=== PATIENT | female | born 1950 | race Caucasian/White ===

== ENCOUNTER 2016-11-12 10:08 | Emergency (ER) | payer OTHER, MEDICARE ==
[~2016-11-12] VITALS: Ht 162.6 cm; Wt 61.2 kg
[~2016-11-12 10:08] MED LIST: AMANTADINE HCL100 M1 PO; ATORVASTATIN CA10 M1 PO; DIVALPROEX SOD250 M3 PO; FLUVOXAMINE MAL25 M1 PO; LITHIUM CARBON300 M4 PO; LITHIUM CARBON450 M1 PO; LITHIUM CARBON450 MG PO; OLANZAPINE15 M1 PO; OLANZAPINE5 MG PO; PROPRANOLOL HCL10 MG PO; TRAZODONE HCL50 M1 PO; TRIHEXYPHENIDYL2 MG PO
--- NOTE | 2016-11-12 11:11 | ED MVC/FALL/TRAUMA COMPLAINT ---
History of Present Illness General Chief Complaint: Fall Stated Complaint: BIBA FALL Source: patient Exam Limitations: no limitations Vital Signs & Intake/Output Vital Signs & Intake/Output Vital Signs Date Time Temp Pulse Resp B/P Pulse O2 O2 Flow FiO2 Ox Delivery Rate 11/12 1228 78 22 113/67 96 Room Air 11/12 1054 98 Room Air 11/12 1017 96.9 80 20 115/77 95 Room Air Allergies Coded Allergies: NO KNOWN ALLERGIES (06/20/16) Reconcile Medications Atorvastatin Calcium 10 MG TABLET 1 TAB PO DAILY CHOLESTEROL (Reported) Divalproex Sodium (Divalproex Sodium ER) 250 MG TAB.ER.24H 1 TAB PO DAILY BIPOLAR (Reported) Divalproex Sodium (Depakote) 500 MG TABLET.DR 1 TAB PO QPM BIPOLAR (Reported) Fluvoxamine Maleate 25 MG TABLET 1 TAB PO QHS MENTAL HEALTH (Reported) Pacifica Carbonate 300 MG CAPSULE 1 CAP PO BID UNKNOWN (Reported) Pacifica Carbonate (Pacifica Carbonate ER) 450 MG TABLET.ER 1 TAB PO Q12H MENTAL HEALTH (Reported) Olanzapine 15 MG TABLET 1 TAB PO QPM BIPOLAR (Reported) Trazodone HCl 50 MG TABLET 1 TAB PO QHS MENTAL HEALTH/SLEEP (Reported) Triage Note: PER EMS, PT WAS AT THE [facility], TRIPPED AND FELL. HIT LEFT SIDE OF HEAD, PT STATES SHE TRIPPED "OVER MY OWN 2 FEET", DENIES CHEST PAIN, DIZZINESS, WEAKNESS PRIOR TO FALL. ACCU CHECK 104. Triage Nurses Notes Reviewed? yes Onset: Gradual Duration: hour(s): (1) Timing: no prior history Severity: mild Severity Numbers: 4 Injuries/Fall Location: head, face Method of Injury: fall Loss of Consciousness: no loss of consciousness No Modifying Factors: none HPI: Patient is a 66-year-old female with history of schizoaffective disorder presenting to the emergency department with chief complaint of mechanical fall. Per patient she was walking, at baseline she has shuffled gait, reports that she tripped over her sneaker and fell and hit the left side of her head. Denies any loss of consciousness. No precipitating factors prior to the fall. No visual changes no lightheadedness or dizziness or chest pain palpitations. No nausea or vomiting. Does denies syncope. Denies any other injury besides hitting her head. She does not take blood thinners. She was able to get up with assistance after the fall. The people at the senior facility wanted her to come in by ambulance to be evaluated to make sure vomiting was okay. Patient reports no complaints at this time. No headaches. Denies taking anything prior to arrival for pain. No numbness or tingling. No confusion. (CIRO MUSE) Past History Travel History Traveled to [place] past 21 day No Medical History Any Pertinent Medical History? see below for history Neurological: NONE EENT: NONE Cardiovascular: NONE Respiratory: NONE Gastrointestinal: constipation Hepatic: NONE Renal: NONE Musculoskeletal: osteoarthritis Psychiatric: bipolar disease, PISA syndrome (oral tardive dyskinesia, torso dystonia). Endocrine: NONE Blood Disorders: NONE Cancer(s): NONE PARTS FINISHER/Reproductive: NONE History of MRSA: No History of VRE: No History of CDIFF: No Pneumonia Vaccine: 07/24/14 Surgical History Surgical History: non-contributory Psychosocial History Who do you live with Patient/Self Services at Home None What is your primary language Slovenian Tobacco Use: Never used ETOH Use: denies use Family History Family History, If Any: Relation not specified for: *No pertinent family history Hx Contributory? No (CIRO MUSE) Review of Systems Review of Systems Constitutional: Reports: no symptoms. Comments Review of systems: See HPI, All other systems negative. Constitutional, no chills fever or weight loss HEENT: No visual changes no sore throat no congestion Cardiovascular: No chest pain ,palpitation Skin, no jaundice no rashes Respiratory: No dyspnea cough sputum or hemoptysis GI: No nausea no vomiting : No dysuria No hematuria Muscle skeletal: no back pain, no neck pain, Neurologic: No numbness no confusion NO HEADACHES Psych: No stress anxiety or depression,. Heme/endocrine: No bruising no bleeding no polyuria or polydipsia Immunology: No splenectomy or history of AIDS (CIRO MUSE) Physical Exam Physical Exam General Appearance: well developed/nourished, no apparent distress, alert, awake , comfortable Comments: Well-developed well-nourished person in no acute distress HEENT: extraocular motion intact, no nystagmus. Pupils equally round and reactive to light and accommodation. Nose is atraumatic. External auditory canal and Tympanic membranes clear. Pharynx normal. No swelling or edema. Mild tenderness to palpation over the left parietal region/FRONTALREGION. no step-off or bogginess palpated.SMALL 3 CM HEMATOMA. Neck: Supple, no lymphadenopathy, normal range of motion without pain or tenderness, no C-spine tenderness. Back: Nontender, full range of motion. Negative straight leg raise bilaterally. Cardiovascular: Regular rate and rhythms no murmurs rubs or gallops, normal JVP Respiratory: Chest nontender. No respiratory distress.breath sounds clear to auscultation bilaterally Extremity: No edema, no calf tenderness to palpation, normal and equal pulses. Full range of motion of all extremities without [place] of ear pain. All Source Collection Manager strength is equal and symmetric bilaterally. Muscular strength is 5 out of 5 in all extremities. Neuro: Alert oriented x3, motor sensory normal, cranial nerves II through XII grossly intact. Cerebellar testing is unremarkable. Skin: No appreciable rash on exposed skin, skin is warm and dry. Psych: Mood and affect is normal, memory and judgment is normal. Core Measures ACS in differential dx? No Severe Sepsis Present: No Septic Shock Present: No (ANDREA VASQUEZ,CIRO) Progress Differential Diagnosis: C/T/L spine injury, ICH, SKULL FRACTURE Plan of Care: Orders Procedure Date/time Status Regular Diet 11/12 D Active Diagnostic Imaging: Viewed by Me: CT Scan. Discussed w/RAD: CT Scan. Radiology Impression: PATIENT: YRN CHINO PRESENT AGE: 66 PATIENT ACCOUNT NO: [id number] : 48 LOCATION: [facility] ORDERING PHYSICIAN: CIRO VASQUEZ SERVICE DATE: 11/12/16-1110 EXAM TYPE: CAT - CT HEAD WO IV CONTRAST EXAMINATION: CT HEAD WITHOUT CONTRAST CLINICAL INFORMATION: Fall. Head strike. Evaluate for fracture. COMPARISON: CT scan of the head 11/23/2013. TECHNIQUE: Contiguous axial imaging was performed from the skull base to vertex without intravenous administration of contrast. DLP: 886.28 mGy-cm. FINDINGS: Head: There is mild swelling of the left frontal scalp. There is no acute intracranial hemorrhage or abnormal extra-axial collection. No intracranial mass effect or midline shift. Lateral and third ventricles are slightly prominent and there is proportionate prominence of the subarachnoid spaces reflecting a mild degree of global parenchymal volume loss. Wright-white matter differentiation is grossly preserved and there is no evidence of acute territorial infarct. The calvarium and skull base are intact. Mastoid air cells and middle ear cavities are well aerated. Visualized paranasal sinuses are well aerated. There is degenerative arthrosis of both temporomandibular joints. Cervical spine: There is multilevel degenerative spondylosis with ankylosis fusing the vertebral segments from C3 to C6. There is junctional spondylosis at C6-C7 with loss of intervertebral disc height and sclerotic degenerative endplate changes. Alignment is preserved in the sagittal dimension. Vertebral body heights are maintained. There is no evidence of acute fracture or subluxation. Grossly there is no evidence of canal or neuroforaminal compromise. Soft tissues of the neck including the thyroid gland are unremarkable. Minimal pleural-parenchymal scarring visualized at the apices of both lungs. IMPRESSION: Mild swelling of the left frontal scalp. No acute intracranial hemorrhage. No acute cervical spine fracture. Comments: 11/12/2016 12:53:26 PM patient is neurologically intact in no acute distress. She does have pain to palpation over the left parietal region of the scalp. Although no step-off or bogginess palpated due to her age and medical history we 'll obtain CT scan of the head and neck for clearance. Fall was mechanical. 11/12/2016 1:20:14 PM patient informed of imaging results. Patient walking with a steady gait. Patient will follow up with primary care physician. Discussed with and he agrees with plan. (CIRO MUSE) Departure Departure Time of Disposition: 1322 Disposition: HOME OR SELF CARE Condition: Stable Clinical Impression Primary Impression: Minor head injury Qualifiers: Encounter type: initial encounter Qualified Code: S00.90XA - Unspecified superficial injury of unspecified part of head, initial encounter Referrals: NICK CANNON MD (PCP/Family) Additional Instructions: Follow-up with your primary care physician call to make an appointment. Apply ice to affected area. Take Tylenol for any pain. Return for worsening symptoms or concerns. Departure Forms: Customer Survey General Discharge Information (CIRO MUSE) PA/CAR RESTORER Co-Sign Statement Statement: ED Attending supervision documentation- x I saw and evaluated the patient. I have also reviewed all the pertinent lab results and diagnostic results. I agree with the findings and the plan of care as documented in the PA's/CAR RESTORER's documentation. [] I have reviewed the ED Record and agree with the PA's/CAR RESTORER's documentation. [] Additions or exceptions (if any) to the PAs/CAR RESTORER's note and plan are summarized below: [] (AG GARCIA,KUNAL)
[2016-11-12] MEDS ORDERED: DEPAKOTE500 M1 PO (11:16)
[2016-11-12 12:28] VITALS: BP 113/67
--- NOTE | 2016-11-12 13:04 | CT SCAN REPORT ---
EXAMINATION: CT HEAD WITHOUT CONTRAST CLINICAL INFORMATION: Fall. Head strike. Evaluate for fracture. COMPARISON: CT scan of the head 11/23/2013. TECHNIQUE: Contiguous axial imaging was performed from the skull base to vertex without intravenous administration of contrast. DLP: 886.28 mGy-cm. FINDINGS: Head: There is mild swelling of the left frontal scalp. There is no acute intracranial hemorrhage or abnormal extra-axial collection. No intracranial mass effect or midline shift. Lateral and third ventricles are slightly prominent and there is proportionate prominence of the subarachnoid spaces reflecting a mild degree of global parenchymal volume loss. Wright-white matter differentiation is grossly preserved and there is no evidence of acute territorial infarct. The calvarium and skull base are intact. Mastoid air cells and middle ear cavities are well aerated. Visualized paranasal sinuses are well aerated. There is degenerative arthrosis of both temporomandibular joints. Cervical spine: There is multilevel degenerative spondylosis with ankylosis fusing the vertebral segments from C3 to C6. There is junctional spondylosis at C6-C7 with loss of intervertebral disc height and sclerotic degenerative endplate changes. Alignment is preserved in the sagittal dimension. Vertebral body heights are maintained. There is no evidence of acute fracture or subluxation. Grossly there is no evidence of canal or neuroforaminal compromise. Soft tissues of the neck including the thyroid gland are unremarkable. Minimal pleural-parenchymal scarring visualized at the apices of both lungs. IMPRESSION: Mild swelling of the left frontal scalp. No acute intracranial hemorrhage. No acute cervical spine fracture.
--- NOTE | 2016-11-12 13:19 | CT SCAN REPORT ---
Please refer to accession # [id number] for the report regarding CT findings in the head and cervical spine.
== END 2016-11-12 15:00 ==
LOC: ERH 10:08
DX: S09.90XA Unspecified injury of head, initial encounter (principal); W18.09XA Striking against other object with subsequent fall, initial encounter

== ENCOUNTER 2017-02-09 12:38 | Observation (INO) | payer OTHER, MEDICARE ==
[~2017-02-09] VITALS: Ht 162.6 cm; Wt 61.2 kg
[~2017-02-09 12:38] MED LIST changes: +DEPAKOTE500 M1 PO
--- NOTE | 2017-02-09 12:45 | ED NEURO DEFICIT/STROKE ---
History of Present Illness General Chief Complaint: General Adult Stated Complaint: left side weakness Source: patient Exam Limitations: no limitations Vital Signs & Intake/Output Vital Signs & Intake/Output Vital Signs Date Time Temp Pulse Resp B/P Pulse O2 O2 Flow FiO2 Ox Delivery Rate 02/10 0803 98.2 74 15 117/80 94 Room Air 02/10 0054 98.5 71 20 118/68 94 Room Air 02/09 1809 98.2 69 20 122/72 93 Room Air 02/09 1644 98.0 77 20 112/72 97 02/09 1547 97.1 77 18 114/88 95 Room Air 02/09 1343 97.8 84 20 114/83 96 Room Air 02/09 1308 97 02/09 1242 98.7 80 16 115/78 97 Room Air ED Intake and Output 02/10 0000 02/09 1200 Intake Total 750 Output Total 300 Balance 450 Intake, Oral 750 Output, Urine 300 Patient 135 lb Weight Allergies Coded Allergies: NO KNOWN ALLERGIES (06/20/16) Reconcile Medications Atorvastatin Calcium 10 MG TABLET 1 TAB PO DAILY CHOLESTEROL (Reported) Ciprofloxacin HCl 250 MG TABLET 1 TAB PO BID ANTIBIOTIC, INFECTION (Reported) Citalopram Hydrobromide (Celexa) 10 MG TABLET 1 TAB PO DAILY MENTAL HEALTH ( Reported) Divalproex Sodium (Divalproex Sodium ER) 250 MG TAB.ER.24H 1 TAB PO DAILY BIPOLAR (Reported) Divalproex Sodium (Depakote) 500 MG TABLET.DR 1 TAB PO QPM BIPOLAR (Reported) Olanzapine 15 MG TABLET 1 TAB PO QPM BIPOLAR (Reported) Sulfamethoxazole/Trimethoprim (Bactrim 400-80 MG Tablet) 400 MG-80 MG TABLET 1 TAB PO BID ANTIBIOTIC, INFECTION (Reported) Trihexyphenidyl HCl 2 MG TABLET 0.5 TAB PO DAILY SCHIZOAFFECTIVE (Reported) Triage Note: 66 Y/O FEMALE C/O "IM CROOKED". PT STATES SHE WAS IN EXERCISE CLASS AND INSTRUCTOR ASKED HER TO SIT DOWN BECAUSE THEY NOTICED SHE WAS OFF BALANCE. STATES SHE NOTICED DEFICITS AT 0500, "WHEN I GOT UP". SLIGHT SLURRED SPEECH NOTED. PT DENIES CONFUSION OR ANY OTHER COMPLAINTS. L HAND GRASP SLIGHTER WEAKER WITH L FACIAL DROOP NOTED. TAKEN TO ROOM FOR EVAL Triage Nurses Notes Reviewed? yes Onset: Abrupt Duration: 5:30 THIS MORNING Timing: single episode today Severity: moderate New Weakness: left facial Impaired Ability: off balance Associated Symptoms: weakness HPI: This is a 66-year-old female with history of bipolar disorder on lithium and Depakote presents to the ER for chief complaint of feeling crooked. She states she was at her exercise class when the stopped and noticed that she was not standing straight. Patient reports that when she got up this morning she noticed that she was having difficulty with her speech and that her mouth felt off balance. She also felt off balance at home. Denies any headache or blurred vision. Denies any difficulty swallowing. Denies any left-sided weakness but feels that she was looking over her to her left side. No fever no chills no chest pain or shortness of breath no abdominal pain. She is recently on antibiotics for urine infection. Past History Travel History Traveled to [place] past 21 day No Medical History Any Pertinent Medical History? see below for history Neurological: NONE EENT: NONE Cardiovascular: NONE Respiratory: NONE Gastrointestinal: constipation Hepatic: NONE Renal: NONE Musculoskeletal: osteoarthritis Psychiatric: bipolar disease, PISA syndrome (oral tardive dyskinesia, torso dystonia). Endocrine: NONE Blood Disorders: NONE Cancer(s): NONE TECHNOLOGY RISK INTERN/Reproductive: NONE History of MRSA: No History of VRE: No History of CDIFF: No Surgical History Surgical History: non-contributory Psychosocial History Who do you live with Patient/Self Services at Home None What is your primary language Jordanian Tobacco Use: Quit >30 days ago Family History Family History, If Any: Relation not specified for: *No pertinent family history Hx Contributory? No Review of Systems Review of Systems Constitutional: Denies: chills, fever. EENTM: Reports: no symptoms. Respiratory: Denies: cough, short of breath. Cardiovascular: Denies: chest pain, palpitations. GI: Denies: abdominal pain, nausea, vomiting. Genitourinary: Denies: discharge, dysuria. Musculoskeletal: Reports: no symptoms. Skin: Reports: no symptoms. Neurological/Psychological: Reports: ataxia, weakness (LEFT FACE), other (DIFFICULTY SPEAKING). Hematologic/Endocrine: Denies: bruising, bleeding, polyuria, polydipsia. Immunologic/Allergic: Denies: splenectomy. All Other Systems: Reviewed and Negative Physical Exam Physical Exam General Appearance: well developed/nourished, alert, awake Head: atraumatic, LEFT FACIAL DROOP Eyes: Bilateral: PERRL, EOMI. Ears, Nose, Throat: normal ENT inspection, hearing grossly normal Neck: normal inspection, supple, trachea midline Respiratory: normal breath sounds, chest non-tender, quiet respiration Cardiovascular: regular rate/rhythm Peripheral Pulses: 2+ radial (R), 2+ radial (L) Gastrointestinal: normal bowel sounds, soft, non-tender Extremities: normal range of motion Psychiatric: awake, alert, oriented x 3 Cranial Nerves: normal hearing, PERRL, facial asymmetry, facial weakness Coordination/Gait: ATAXIC GAIT Motor/Sensory: no motor/sensory deficits Core Measures CVA/TIA Diagnosis: Yes NIH Stroke Scale: Total 5 Severe Sepsis Present: No Septic Shock Present: No Bedside Dysphagia Screen Bedside Swallow Eval Done: Yes Result of Evaluation: Pass Progress Differential Diagnosis: Reza's Palsy, intracranial mass/tumor, stroke, TIA, SEIZURE Plan of Care: Orders Procedure Date/time Status LIPID PANEL 02/10 0600 Complete BASIC ELECTROLYTES PLUS BUN&CR 02/10 0600 Complete Heart Healthy Diet 02/09 D Active TROPONIN LEVEL 02/09 1930 Complete EKG 02/09 1930 Active Vital Signs 02/09 1827 Active Teach/Educate 02/09 1827 Active Pain Treatment and Response 02/09 1827 Active Nutritional Intake, Monitor 02/09 182 Active Isolation 02/09 1827 Active Intake & Output 02/09 1827 Active Patient Care Conference 02/09 1827 Active Activity/Ambulation 02/09 1827 Active Code Status 02/09 1530 Active Pathway - chart 02/09 1522 Active Code Status 02/[address] in observation 02/09 1427 Active Patient Data 02/09 1406 Active Vital Signs 02/09 1358 Active Code Status 02/09 1358 Complete LIPID PANEL 02/09 1322 Complete Intake & Output 02/09 1308 Active NIH Stroke Scale 02/09 1307 Active URINALYSIS 02/09 1254 Complete TROPONIN LEVEL 02/09 1254 Complete PARTIAL THROMBOPLASTIN TIME 02/09 1254 Complete PROTHROMBIN TIME 02/09 1254 Complete LITHIUM 02/09 1254 Complete DEPAKOTE LEVEL 02/09 1254 Complete COMPREHENSIVE METABOLIC PANEL 02/09 1254 Complete CBC WITHOUT DIFFERENTIAL 02/09 1254 Complete EKG 02/09 1240 Active PT Evaluate & Treat 02/09 UNK Active House Staff 02/09 UNK Active Lab Add-on Test 02/09 UNK Active VTE Mechanical Prophylaxis 02/09 UNK Active Vital Signs 02/09 UNK Complete NIH Stroke Scale 02/09 UNK Complete Current Medications Sig/Claudio Start time Last Medication Dose Stop Time Status Admin Atorvastatin Calcium 20 MG 1700 02/10 1700 AC (Lipitor) Aspirin Buffered 81 MG DAILY 02/10 1000 AC (Ecotrin) Citalopram 10 MG DAILY 02/10 1000 AC Hydrobromide (Celexa) Divalproex Sodium 250 MG DAILY 02/10 1000 AC (Depakote) Trihexyphenidyl HCl 1 MG DAILY 02/10 1000 AC (Artane) Acetaminophen 650 MG Q6P PRN 02/09 1530 AC (Tylenol) Laboratory Tests 02/10/17 0638: Anion Gap 9, Estimated GFR > 60, BUN/Creatinine Ratio 15.6, Triglycerides 209 H , Cholesterol 227 H, LDL Cholesterol, Calc 140 H, HDL Cholesterol 46, Cholesterol/HDL Ratio 5 H 02/09/17 2130: Urine Color YEL, Urine Clarity CLEAR, Urine pH 7.0, Ur Specific [place] 1.010, Urine Protein NEG, Urine Ketones NEG, Urine Nitrite NEG, Urine Bilirubin NEG, Urine Urobilinogen 0.2, Ur Leukocyte Esterase NEG, Ur Microscopic SEDIMENT EXAMINED, Urine RBC 1-3, Urine WBC RARE, Ur Epithelial Cells RARE, Urine Bacteria RARE H, Urine Mucus RARE, Urine Hemoglobin TRACE-INTACT, Urine Glucose NEG 02/09/17 1930: Troponin I < 0.01 02/09/17 1322: Anion Gap 13, Estimated GFR 55 L, BUN/Creatinine Ratio 13.0, Glucose 76, Calcium 10.5 H, Total Bilirubin 0.4, AST 32, ALT 46, Alkaline Phosphatase 61, Troponin I < 0.01, Total Protein 6.8, Albumin 3.9, Globulin 2.9, Albumin/ Globulin Ratio 1.3, Triglycerides 138, Cholesterol 226 H, LDL Cholesterol, Calc 148 H, HDL Cholesterol 51, Cholesterol/HDL Ratio 4, PT 11.0, INR 1.05, APTT 29, CBC w Diff NO MAN DIFF REQ, RBC 4.65, MCV 90.2, MCH 30.5, RDW 12.7, MPV 8.7, Gran % 51.8, Lymphocytes % 31.0, Monocytes % 15.8 H, Eosinophils % 0.6, Basophils % 0.8, Absolute Granulocytes 2.8, Absolute Lymphocytes 1.7, Absolute Monocytes 0.9 H, Absolute Eosinophils 0, Absolute Basophils 0, PUBS MCHC 33.8, Valproic Acid 63.3, Burwell < 0.2 L Diagnostic Imaging: Viewed by Me: CT Scan, MRI. Discussed w/RAD: CT Scan, MRI. Radiology Impression: PATIENT: YRN CHINO PRESENT AGE: 66 PATIENT ACCOUNT NO: [id number] : 48 LOCATION: [facility] ORDERING PHYSICIAN: SOLITARIO CORNELL MD SERVICE DATE: 02/09/17125 EXAM TYPE: CAT - CT HEAD WO IV CONTRAST EXAMINATION: CT HEAD WITHOUT CONTRAST CLINICAL INFORMATION: Left facial droop. Off balance. Difficulty speaking. COMPARISON: 11/23/2013 TECHNIQUE: Contiguous axial imaging was performed from the skull base to vertex without intravenous contrast. DLP: 601 mGy-cm. FINDINGS: There is no evidence of acute intracranial hemorrhage or territorial infarction. No abnormal mass effect or midline shift is seen. Wright to white matter differentiation is well preserved. No extra-axial fluid collections are identified. No hydrocephalus. Proportional prominence of the ventricles and sulcal spaces is consistent with mild volume loss. Patchy periventricular and deep white matter hypoattenuation is consistent with mild small vessel ischemic changes. The osseous structures and soft tissues are normal. The mastoid air cells and visualized portions of the paranasal sinuses are well aerated. IMPRESSION: No acute intracranial pathology. Mild volume loss with small vessel ischemic changes. DICTATED BY: LUIS EPPS MD DATE/TIME DICTATED:02/09/171340 WORLD TRAVEL COUNSELOR: ABDULLAHI DATE/TIME TRANSCRIBED:02/09/171340 CONFIDENTIAL, DO NOT COPY WITHOUT APPROPRIATE AUTHORIZATION. <Electronically signed in Other Vendor System> SIGNED BY: LUIS EPPS MD 02/09/17 1345 Initial ED EKG: NSR Comments: PATIENT: YRN CHINO PRESENT AGE: 66 PATIENT ACCOUNT NO: [id number] : 48 LOCATION: [facility] ORDERING PHYSICIAN: SOLITARIO CORNELL MD SERVICE DATE: 02/09/17-1352 EXAM TYPE: MRI - MRI-HEAD W/O ALMA ROSA EXAMINATION: MR BRAIN WITHOUT CONTRAST CLINICAL INFORMATION: Previous head CT describes left facial droop, off balance, and difficulty speaking. COMPARISON: Head CT performed earlier today. TECHNIQUE: MRI of the brain without contrast was obtained using routine sequences. FINDINGS: There is no hydrocephalus, extra-axial surface collection, or herniation. Global cerebral volume loss and mild chronic microangiopathy. The major flow voids at the skull base are preserved. There is no acute infarct on diffusion-weighted imaging. There is no intracranial hemorrhage on the gradient recalled echo acquisition. Benign choroid plexus xanthogranulomas incidentally noted bilaterally. The midline structures are normal. The cerebellar tonsils are normally positioned. The cerebellum and brainstem are normal. The craniocervical junction is normal. Osseous marrow signal intensity is homogenous. The visualized soft tissues are unremarkable. Mild mucosal thickening within the right maxillary sinus. The remaining paranasal sinuses and the mastoid air cells are clear. IMPRESSION: - No acute intracranial findings. No acute infarcts. - Global cerebral volume loss and mild chronic microangiopathy. DICTATED BY: LUZ SPEARS MD DATE/TIME DICTATED:02/09/171807 WORLD TRAVEL COUNSELOR:ABDULLAHI DATE/TIME TRANSCRIBED:02/09/171807 CONFIDENTIAL, DO NOT COPY WITHOUT APPROPRIATE AUTHORIZATION. <Electronically signed in Other Vendor System> SIGNED BY: LUZ SPEARS MD 02/09/17 1821 Departure Departure Time of Disposition: 1358 Disposition: STILL A PATIENT Condition: Stable Clinical Impression Primary Impression: CVA (cerebral vascular accident) Referrals: JAMES KELLER MD (PCP/Family) Departure Forms: Customer Survey General Discharge Information Observation Note Spoke With: ROGERS ADORNO MD Physician Advisor Notified: ANNALISA GARCIA,MARLON [facility] Patient In: Non-ED OBS Care Area Rationale for Observation: My rational for observation is as follows [TELE MONITOR, NEURO CHECKS, MRI BRAIN , NEURO CONSULT].
--- NOTE | 2017-02-09 13:00 | NUR ---
TRIAGE NOTE APPRECIATED PT WITH FACIAL DROOP NO WEAKNESS NOTED TO UPPER AND LOWER EXT. PT IS ALERT AND ORIENDTED STATES SHE JUST FEELS OFF BALANCE PT STATES SHE DIDN'T LOOK IN THE MIRROR BEFORE GOINT TO EXCERCISE CLASS AND THE INSTRUCTOR CAME UP AND WANTED TO TALK WITH HER ABOUT HER BALANCE.
--- NOTE | 2017-02-09 13:27 | NUR ---
PT TO CAT SCAN VIA STRETCHER.
[2017-02-09 13:28] LABS: ABSOLUTE BASOPHIL COUNT 0 /CUMM (0.0-0.2); ABSOLUTE EOSINOPHIL COUNT 0 /CUMM (0.0-0.7); ABSOLUTE GRANULOCYTE CT 2.8 /CUMM (1.4-6.5); ABSOLUTE LYMPH COUNT 1.7 /CUMM (1.2-3.4); ABSOLUTE MONOCYTE COUNT 0.9 /CUMM (0.10-0.60); BASOPHIL % 0.8 % (0.0-2.0); EOSINOPHIL % 0.6 % (0-5); GRANULOCYTE % 51.8 % (42.2-75.2); HEMATOCRIT 41.9 % (37-47); MEAN CORPUSCULAR HGB 30.5 PG (27.0-31.0); MEAN CORPUSCULAR HGB CONC 33.8 G/DL (33.0-37.0); MEAN CORPUSCULAR VOLUME 90.2 FL (81.0-99.0); MEAN PLATELET VOLUME 8.7 FL (7.4-10.4); PLATELET COUNT 206 /CUMM (130-400); RBC DISTRIBUTION WIDTH 12.7 % (11.5-14.5); RED BLOOD CELL CT 4.65 /CUMM (4.20-5.40); WHITE BLOOD CELL COUNT 5.4 /CUMM (4.8-10.8)
[2017-02-09 13:37] LABS: PTT 29 SEC (25-37)
--- NOTE | 2017-02-09 13:45 | NUR ---
BACK FROM CAT SCAN.
--- NOTE | 2017-02-09 13:47 | CT SCAN REPORT ---
EXAMINATION: CT HEAD WITHOUT CONTRAST CLINICAL INFORMATION: Left facial droop. Off balance. Difficulty speaking. COMPARISON: 11/23/2013 TECHNIQUE: Contiguous axial imaging was performed from the skull base to vertex without intravenous contrast. DLP: 601 mGy-cm. FINDINGS: There is no evidence of acute intracranial hemorrhage or territorial infarction. No abnormal mass effect or midline shift is seen. Wright to white matter differentiation is well preserved. No extra-axial fluid collections are identified. No hydrocephalus. Proportional prominence of the ventricles and sulcal spaces is consistent with mild volume loss. Patchy periventricular and deep white matter hypoattenuation is consistent with mild small vessel ischemic changes. The osseous structures and soft tissues are normal. The mastoid air cells and visualized portions of the paranasal sinuses are well aerated. IMPRESSION: No acute intracranial pathology. Mild volume loss with small vessel ischemic changes.
[2017-02-09 13:49] LABS: LITHIUM < 0.2 mmol/L (0.6-1.2)
[2017-02-09] MEDS ORDERED: CELEXA10 M1 PO (13:53)
[2017-02-09] MEDS ORDERED: TRIHEXYPHENIDYL2 M2 PO (13:53)
[2017-02-09] MEDS ORDERED: CIPROFLOXACIN250 M1 PO (13:54)
[2017-02-09] MEDS ORDERED: BACTRIM 400-801 EACH PO (13:54)
--- NOTE | 2017-02-09 14:00 | NUR ---
PT AMBULATED TO BATHROOM WITH STEADY GAIT, W/O DIFFICULTY. PT PROVIDED URINE CUP AND EDUCATED ON COLLECTING URINE SAMPLE. PT CAME OUT OF BATHROOM WITH EMPTY URINE CUP AND STATED "I FORGOT TO PEE IN THE CUP". ASSISTED BACK TO BED. AWARE SHE WILL HAVE A MRI AND PLAN IS FOR ADMISSION. HOOKED BACK UP TO FUR STORAGE CLERK. Informed waiting has been performed.
--- NOTE | 2017-02-09 14:10 | NUR ---
PT ABLE TO SWALLOW WATER W/O DIFFICULTY. DR ADORNO AT BEDSIDE FOR EVAL.
--- NOTE | 2017-02-09 14:25 | NUR ---
PT'S FAILURE ANALYSIS TECHNICIAN MONICA CAN BE REACHED AT [phone].
--- NOTE | 2017-02-09 14:28 | NUR ---
ORDERED PT LUNCH
--- NOTE | 2017-02-09 14:55 | NUR ---
PT ADMITTED TO ROOM 184-1
--- NOTE | 2017-02-09 15:20 | NUR ---
HOUSESTAFF IN FOR EVAL.
--- NOTE | 2017-02-09 15:56 | History & Physical ---
See Addendum KAY GARCIA,JOY 02/09/17 7815: General Information and HPI MD Statement: I have seen and personally examined YRN CHINO and documented this H&P. The patient is a 66 year old F who presented with a patient stated chief complaint of [left sided chest pain]. Source of Information: patient, old records, EMS Exam Limitations: no limitations History of Present Illness: Patient is a 66 YO F with PMH significant for panic disorder, PISA syndrome, bipolar disorder, constipation came with tilting towards left side (crooked in patients words). she feels weak on left side for several weeks along with speech difficulty. Today while she is exercising, noticed that she was not standing properly (leaning towards left). she reports speech difficulty at baseline which didnt get any worse. She was able to walk, came to the ER with her Aide. She lives at home with a 24hr aide. She reports compliance with her medications. She recently had a UTI, started on bactrim - completed 3/5 day course so far. She also reports sorethroat started today. She usually gets Botox injections for her torticollis, near her neck and at her upper lips. Last injeciton was 2 months ago on her upper lip. she had left facial asymmetry at her baseline. she denies any dizziness, lightheadeness, tingling, numbness, falls. She threw up yesterday night, denies any nausea. She denies any difficulty with eating/drinking -- Passed bedside swallow evaluation. Allergies/Medications Allergies: Coded Allergies: NO KNOWN ALLERGIES (06/20/16) Home Med list Atorvastatin Calcium 10 MG TABLET 1 TAB PO DAILY CHOLESTEROL (Reported) Ciprofloxacin HCl 250 MG TABLET 1 TAB PO BID ANTIBIOTIC, INFECTION (Reported) Citalopram Hydrobromide (Celexa) 10 MG TABLET 1 TAB PO DAILY MENTAL HEALTH ( Reported) Divalproex Sodium (Divalproex Sodium ER) 250 MG TAB.ER.24H 1 TAB PO DAILY BIPOLAR (Reported) Divalproex Sodium (Depakote) 500 MG TABLET.DR 1 TAB PO QPM BIPOLAR (Reported) Olanzapine 15 MG TABLET 1 TAB PO QPM BIPOLAR (Reported) Sulfamethoxazole/Trimethoprim (Bactrim 400-80 MG Tablet) 400 MG-80 MG TABLET 1 TAB PO BID ANTIBIOTIC, INFECTION (Reported) Trihexyphenidyl HCl 2 MG TABLET 0.5 TAB PO DAILY SCHIZOAFFECTIVE (Reported) Compliance With Home Meds: GOOD Past History Travel History Traveled to [place] past 21 day No Medical History Neurological: NONE EENT: NONE Cardiovascular: NONE Respiratory: NONE Gastrointestinal: constipation Hepatic: NONE Renal: NONE Musculoskeletal: osteoarthritis Psychiatric: bipolar disease, PISA syndrome (oral tardive dyskinesia, torso dystonia). Endocrine: NONE Blood Disorders: NONE Cancer(s): NONE LOAD PLANNER/Reproductive: NONE History of MRSA: No History of VRE: No History of CDIFF: No Surgical History Surgical History: non-contributory Past Family/Social History Family History Relations & Conditions if any uncle FH: bipolar disorder Relation not specified for: *No pertinent family history Psychosocial History Where do you live? Home Who Do You Live With? self Services at Home: Home Health Aide Primary Language: Bermudian Smoking Status: Former Smoker ETOH Use: occasional use Illicit Drug Use: denies illicit drug use Living Will? yes Functional Ability ADLs Independent: dressing, eating, toileting, bathing. Ambulation: independent Review of Systems Review of Systems Constitutional: Reports: see HPI. EENTM: Reports: no symptoms. Cardiovascular: Reports: no symptoms. Respiratory: Reports: no symptoms. GI: Reports: constipation, vomiting. Date of Last Colonoscopy: 01/30/17 Comments ROS negative except the above. Exam & Diagnostic Data Last 24 Hrs of Vital Signs/I&O Vital Signs Date Time Temp Pulse Resp B/P Pulse O2 O2 Flow FiO2 Ox Delivery Rate 02/09 1644 98.0 77 20 112/72 97 02/09 1547 97.1 77 18 114/88 95 Room Air 02/09 1343 97.8 84 20 114/83 96 Room Air 02/09 1308 97 02/09 1242 98.7 80 16 115/78 97 Room Air Intake & Output 02/09 1600 02/09 0800 02/09 0000 Intake Total 0 Output Total Balance 0 Intake, Oral 0 Patient 61.235 kg Weight Physical Exam General Appearance Alert, Oriented X3, Cooperative Skin No Rashes, No Breakdown HEENT Atraumatic, dilated pupils, facial asymmetry Neck Supple Body Front and Back (Adult) 1) left facial asymmetry and weakness at baseline Last 24 Hrs of Labs/Jian: Laboratory Tests 02/09/17 1322: Anion Gap 13, Estimated GFR 55 L, BUN/Creatinine Ratio 13.0, Glucose 76, Calcium 10.5 H, Total Bilirubin 0.4, AST 32, ALT 46, Alkaline Phosphatase 61, Troponin I < 0.01, Total Protein 6.8, Albumin 3.9, Globulin 2.9, Albumin/ Globulin Ratio 1.3, PT 11.0, INR 1.05, APTT 29, CBC w Diff NO MAN DIFF REQ, RBC 4.65, MCV 90.2, MCH 30.5, RDW 12.7, MPV 8.7, Gran % 51.8, Lymphocytes % 31.0, Monocytes % 15.8 H, Eosinophils % 0.6, Basophils % 0.8, Absolute Granulocytes 2.8, Absolute Lymphocytes 1.7, Absolute Monocytes 0.9 H, Absolute Eosinophils 0 , Absolute Basophils 0, PUBS MCHC 33.8, Valproic Acid 63.3, Amery < 0.2 L Diagnostic Data EKG Results NSR DC 148, QTc [address] No acute intracranial pathology. Mild volume loss with small vessel ischemic changes. Assessment/Plan Assessment: Patient is a 66 YO F with extensive psychiatric history including PISA syndrome, Bipolar disorder came to the ER with left sided tilting and weakness. ER Course VS Afebrile, pulse 80, RR 16, BP 115/78mmHg, on room air Significant labs Toxicology - Amery <0.2, valproic acid 63.3 -->therapeutic GFR 55 (stage III), calcium 10.5, troponin <0.[address] scan No acute pathology Plan Suspected TIA * CT ruled out hemorrhage, MRI pending * Passed bedside swallow evaluation * Neuro consulted - will see in am * Aspirin given in ER, started on Atorvastatin 20mg and aspirin 81mg Dystonia * Patient reports torticollis and dystonis, currently receiveing botox injections Q 3 months, last one was 2 months ago. Mental health * We will continue her home medications including divalproex 500mg QPM, Olanzepine 15mg QPM, Citalopram 10mg, Trihexyphenidyl 1mg dialy. DVT prophylaxis * SC heparin Code status * DNR/DNI As Ranked By This Provider Problem List: 1. Bipolar disorder 2. Unsteady gait 3. Chronic constipation 4. Dystonia 5. CVA (cerebral vascular accident) Core Measures/Miscellaneous Acute Coronary Syndrome ACS Diagnosis: No Cerebrovascular Accident CVA/TIA Diagnosis: No Congestive Heart Failure CHF Diagnosis: No Severe Sepsis Severe Sepsis Present: No Septic Shock Septic Shock Present: No Miscellaneous Documentation Attending Case Discussed With: CAROLINA HONEYCUTT MD Primary Care Physician: JAMES KELLER MD Patient sees these Specialists unknown Level of Patient Care: Telemetry ASAEL MCMULLEN MD 02/10/17 0741: Core Measures/Miscellaneous Venous Thromboembolism VTE Risk Factors: Age > 40 [facility] prophylaxis d/t: No contraindications No VTE Pharm Prophylaxis d/t: No contraindications VTE Diagnosis: No VTE Type: NONE VTE Confirmed by (Test): NONE Resident Review Statement Resident Statement: examined this patient, discussed with technology development intern, agreed with technology development intern, reviewed EMR data (avail), reviewed images, amended to note Other Findings: 6 is 66 year female with past medical history of panic disorder, bipolar disorder, schizoaffective disorder, tardive dyskinesia with torso dystonia presented to ER with chief complaint of feeling of herself being crooked. As per the patient patient had significant tardive dyskinesia with torso dystonia with torticollis of neck and facial muscle requiring intermittent Botox injections. She felt that her left side was weak and she was tilted toward left -sided and her face was feeling funny since she had Botox injection 2 months ago. Patient denied any dizziness, headache, speech abnormality, recent fever, chills, upper respiratory infection, chest pain, difficulty in breathing. She was recently treated for UTI with Bactrim and ciprofloxacin completed 3 days course of antibiotic. Her vitals on admission were T 98.7, HR 80, RR 16, BP 115/78, O2 sat 97% on room air. On physical exam patient is alert oriented 3 in no acute distress, HEENT PERRLA EOMI, neck supple, heart S1-S2 normal, lungs clear on auscultation, abdomen soft nontender non-distended with preserved bowel sounds, strength 5/5 in all 4 extremities, noted right facial droop on exam, gait posterior, cerebellar signs negative, Romberg is negative, Babinski negative, visual field intact, no sensory deficit, no peripheral edema. Labs were significant for H&H 14.2/41.9, BUN 13, creatinine 1, lithium level less than 0.2, valproate level LXIII.3 therapeutic, UA negative EKG revealed normal sinus rhythm with no acute ST-T changes and QTC of 422 CT head was negative for any intracranial pathology MRA head did not reveal any acute intracranial findings but noted global cerebral volume loss and mild chronic microangiopathy Assessment and plan: 1. Left-sided weakness - Most likely chronic as it was confirmed with patient's regular clinic physician that patient has chronic right-sided facial droop and left-sided tilted gait because of severe scoliosis - observe 24 Hours and Do Serial Neuro Checks - CT and MRI head did not reveal any acute intracranial process - Unlikely any acute neurologic event - Neurologic consult, will defer further neurologic investigation as per neurology recommendation - Given aspirin - Continue statin with increased dose - Passed bedside swallow eval - PT evaluation 2. Bipolar disorder and schizoaffective disorder - Continue home dose psychiatry medication - Confirmed medication dose with [facility] office 3. DVT prophylaxis Subcutaneous heparin 4. DNR/DNI
--- NOTE | 2017-02-09 16:27 | NUR ---
AWAITING POSSIBILITY OF MRI. NO ANSWER IN MRI DEPARTMENT.
--- NOTE | 2017-02-09 16:51 | NUR ---
REPORT GIVEN DIST BOOKED.
--- NOTE | 2017-02-09 17:09 | NUR ---
PER MRI CAN TAKE PT NOW. PT TO MRI.
--- NOTE | 2017-02-09 17:45 | NUR ---
AT THIS TIME PT ADMITTED TO ROOM 184-01 FROM THE ER. PT AMBULATED TO BED WITH AN UNSTEADY GAIT. PT ALERT AND OREINTED X3, ON RA, VSS, DENOES SOB, DENIES CP, SLIGHT SLURRED SPEECH NOTED ALONG WITH SLIGHT L FACIAL DROOP, EXTREMEITIES STRONG, PT C/O NO PAIN AT THIS TIME, PT ORIENTED TO ROOM AND CALL WU, BED IN LOWEST POSITION, MONITOR PLACED, WILL CONT TO MONITOR
[2017-02-09 18:09] VITALS: BP 122/72
--- NOTE | 2017-02-09 18:21 | MRI REPORT ---
EXAMINATION: MR BRAIN WITHOUT CONTRAST CLINICAL INFORMATION: Previous head CT describes left facial droop, off balance, and difficulty speaking. COMPARISON: Head CT performed earlier today. TECHNIQUE: MRI of the brain without contrast was obtained using routine sequences. FINDINGS: There is no hydrocephalus, extra-axial surface collection, or herniation. Global cerebral volume loss and mild chronic microangiopathy. The major flow voids at the skull base are preserved. There is no acute infarct on diffusion-weighted imaging. There is no intracranial hemorrhage on the gradient recalled echo acquisition. Benign choroid plexus xanthogranulomas incidentally noted bilaterally. The midline structures are normal. The cerebellar tonsils are normally positioned. The cerebellum and brainstem are normal. The craniocervical junction is normal. Osseous marrow signal intensity is homogenous. The visualized soft tissues are unremarkable. Mild mucosal thickening within the right maxillary sinus. The remaining paranasal sinuses and the mastoid air cells are clear. IMPRESSION: - No acute intracranial findings. No acute infarcts. - Global cerebral volume loss and mild chronic microangiopathy.
[2017-02-10 00:54] VITALS: BP 118/68
--- NOTE | 2017-02-10 07:34 | PN- Housestaff ---
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 Worked with physical therapy very well. Looks more strengthful today. Review of Systems Constitutional: Reports: see HPI. Comments: ROS negative except the above. Objective Last 24 Hrs of Vital Signs/I&O Vital Signs Date Time Temp Pulse Resp B/P Pulse O2 O2 Flow FiO2 Ox Delivery Rate 02/10 0054 98.5 71 20 118/68 94 Room Air 02/09 1809 98.2 69 20 122/72 93 Room Air 02/09 1644 98.0 77 20 112/72 97 02/09 1547 97.1 77 18 114/88 95 Room Air 02/09 1343 97.8 84 20 114/83 96 Room Air 02/09 1308 97 02/09 1242 98.7 80 16 115/78 97 Room Air Intake & Output 02/10 0800 02/10 0000 02/09 1600 Intake Total 240 750 0 Output Total 300 Balance 240 450 0 Intake, Oral 240 750 0 Output, Urine 300 Patient 61.235 kg 61.235 kg Weight Physical Exam General Appearance: Alert, Oriented X3, Cooperative, No Acute Distress Skin: No Rashes, No Breakdown HEENT: Atraumatic, dilated pupils, left sided weakness secondary to botox injections. Neck: Supple, No JVD Cardiovascular: Normal S1, Normal S2, No Murmurs Lungs: Clear to Auscultation, Normal Air Movement Abdomen: Normal Bowel Sounds, Soft, No Tenderness Neurological: Normal Speech, Strength at 5/5 X4 Ext, Normal Tone, Sensation Intact Extremities: No Clubbing, No Cyanosis, No Edema Vascular: Normal Pulses, Pulses Symmetrical Current Medications: Current Medications Sig/Claudio Start time Last Medication Dose Route Stop Time Status Admin Acetaminophen 650 MG Q6P PRN 02/09 1530 AC PO Aspirin 0 .STK-MED ONE 02/09 1413 DC PO Aspirin 325 MG ONCE ONE 02/09 1400 DC 02/09 PO 02/09 1401 1407 Aspirin Buffered 81 MG DAILY 02/10 1000 AC PO Atorvastatin Calcium 20 MG 1700 02/10 1700 AC PO Citalopram 10 MG DAILY 02/10 1000 AC Hydrobromide PO Divalproex Sodium 250 MG DAILY 02/10 1000 AC PO Divalproex Sodium 500 MG QPM 02/09 2200 AC 02/09 PO 214 Heparin Sodium 0 .STK-MED ONE 02/09 1644 DC (Porcine) .ROUTE Heparin Sodium 5,000 UNIT Q8 02/09 1512 AC 02/10 (Porcine) SC 0528 Olanzapine 15 MG QPM 02/09 2200 AC 02/09 PO 2146 Trihexyphenidyl HCl 1 MG DAILY 02/10 1000 AC PO Last 24 Hrs of Lab/Jian Results Last 24 Hrs of Labs/Mics: Laboratory Tests 02/10/17 0638: Anion Gap 9, Estimated GFR > 60, BUN/Creatinine Ratio 15.6, Triglycerides 209 H , Cholesterol 227 H, LDL Cholesterol, Calc 140 H, HDL Cholesterol 46, Cholesterol/HDL Ratio 5 H 02/09/170: Urine Color YEL, Urine Clarity CLEAR, Urine pH 7.0, Ur Specific [place] 1.010, Urine Protein NEG, Urine Ketones NEG, Urine Nitrite NEG, Urine Bilirubin NEG, Urine Urobilinogen 0.2, Ur Leukocyte Esterase NEG, Ur Microscopic SEDIMENT EXAMINED, Urine RBC 1-3, Urine WBC RARE, Ur Epithelial Cells RARE, Urine Bacteria RARE H, Urine Mucus RARE, Urine Hemoglobin TRACE-INTACT, Urine Glucose NEG 02/09/170: Troponin I < 0.01 Lines/Diet/Fluids Lines: peripheral lines Assessment/Plan Assessment: Patient is a 66 YO F with extensive psychiatric history including PISA syndrome, Bipolar disorder came to the ER with left sided tilting and weakness. ER Course VS Afebrile, pulse 80, RR 16, BP 115/78mmHg, on room air Significant labs Toxicology - Milnor <0.2, valproic acid 63.3 -->therapeutic GFR 55 (stage III), calcium 10.5, troponin <0.[address] scan No acute pathology Plan Neurological event ruled out * CT/MRI ruled out any acute pathology * Passed bedside swallow evaluation * Neurology recommendations appreciated. * Aspirin given in ER, started on Atorvastatin 40mg started. * More likely secondary to movement disorder related to her neuroleptic medication intake rather than acute PERFORMANCE MAKEUP ARTIST event. * Stable for discharge today. Dystonia * Patient reports torticollis and dystonis, currently receiveing botox injections Q 3 months, last one was 2 months ago. * Possibly secondary to olanzepine intake, need to be further evaluated by her psychiatrist (Neri Noble) regarding discontinuation vs decreasing dosage. * I spoke with Rafael Richey who reports she had profound psychosis last time she discontinued on olanzepine, may be this need to be done under psychiatrist supervision. Mental health * We will continue her home medications including divalproex 500mg QPM, Olanzepine 15mg QPM, Citalopram 10mg for now. DVT prophylaxis * SC heparin Code status * DNR/DNI Problem List: 1. Bipolar disorder 2. Unsteady gait 3. Dystonia 4. Schizoaffective disorder, bipolar type Pain Ratin Pain Location: n/a Pain Goal: Pain 4 or less Pain Plan: tylenol prn Tomorrow's Labs & Rationales: none
[2017-02-10 08:03] VITALS: BP 117/80
--- NOTE | 2017-02-10 09:11 | Cons- Neurology ---
General Information and HPI Consulting Request Date of Consult: 02/10/17 Requested By: TANGELA GARCIA,CAROLINA Cho Reason for Consult: ? new L sided weaknes / leaning to L Source of Information: patient, EMR Exam Limitations: no limitations History of Present Illness: 66-year-old woman known to me, actually had an outpatient follow-up appointment scheduled for February 09 which she missed (states had forgotten or was unaware of the appt). She has known medication induced parkinsonism, torticollis, torso dystonia, and oral dyskinesias. She typically walks with a wide-based, mildly shuffling gait, with a mildly stooped posture. She states that yesterday morning she was exercising at the [facility] when the swimming coach or instructor became concerned about her balance and suggested that she receive a medical checkup. She states she initially pursued a walk-in clinic but ultimately ended up at [facility]. She does not recall having had any focal weakness. She denied any dizziness headache or falls. She has been seen regarding torticollis for which she has received Botox treatments. She has also received Botox treatments at a very low dose to the perioral muscles for dystonic mouth movements. With the initial treatment several months ago she did have some transient excessive weakness of the orbicularis auris and stated that sometimes water would run out of her mouth due to an incomplete ability to create a seal with her mouth. Mouth weakness has since resolved. 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 She has told me that when her bipolar disorder is not controlled she has an urge to to start a fire. She was recently started on trihexyphenidyl by her psychiatrist with an attempt to better control her neuroleptic induced dystonia. She states she did well on lithium in the past. Allergies/Medications Allergies: Coded Allergies: NO KNOWN ALLERGIES (06/20/16) Home Med List: Atorvastatin Calcium 10 MG TABLET 1 TAB PO DAILY CHOLESTEROL (Reported) Ciprofloxacin HCl 250 MG TABLET 1 TAB PO BID ANTIBIOTIC, INFECTION (Reported) Citalopram Hydrobromide (Celexa) 10 MG TABLET 1 TAB PO DAILY MENTAL HEALTH ( Reported) Divalproex Sodium (Divalproex Sodium ER) 250 MG TAB.ER.24H 1 TAB PO DAILY BIPOLAR (Reported) Divalproex Sodium (Depakote) 500 MG TABLET. 1 TAB PO QPM BIPOLAR (Reported) Olanzapine 15 MG TABLET 1 TAB PO QPM BIPOLAR (Reported) Sulfamethoxazole/Trimethoprim (Bactrim 400-80 MG Tablet) 400 MG-80 MG TABLET 1 TAB PO BID ANTIBIOTIC, INFECTION (Reported) Trihexyphenidyl HCl 2 MG TABLET 0.5 TAB PO DAILY SCHIZOAFFECTIVE (Reported) Current Medications: We will give her 1 Current Medications Sig/Claudio Start time Last Medication Dose Route Stop Time Status Admin Acetaminophen 650 MG Q6P PRN 02/09 1530 AC PO Aspirin 0 .STK-MED ONE 02/09 1413 DC PO Aspirin 325 MG ONCE ONE 02/09 1400 DC 02/09 PO 02/09 1401 1407 Aspirin Buffered 81 MG DAILY 02/10 1000 AC PO Atorvastatin Calcium 20 MG 1700 02/10 1700 AC PO Citalopram 10 MG DAILY 02/10 1000 AC Hydrobromide PO Divalproex Sodium 250 MG DAILY 02/10 1000 AC PO Divalproex Sodium 500 MG QPM 02/09 2200 AC 02/09 PO 2147 Heparin Sodium 0 .STK-MED ONE 02/09 1644 DC (Porcine) .ROUTE Heparin Sodium 5,000 UNIT Q8 02/09 1512 AC 02/10 (Porcine) SC 0528 Olanzapine 15 MG QPM 02/09 2200 AC 02/09 PO 2147 Trihexyphenidyl HCl 1 MG DAILY 02/10 1000 AC PO Review of Systems Review of Systems: REVIEW OF SYSTEMS: (-) = negative / normal blank = not discussed Neurologic: see HPI Eyes: (-) ENT: (-) Constitutional: (-) CV: (-) Respiratory: (-) /Renal: (-) Musculoskeletal: (-) Skin: (-) Psychiatric: see HPI Heme: (-) GI: (-) Allergy/Immune: (-) Endocrine: (-) Other: (-) Past History Travel History Traveled to [place] past 21 day No Medical History Blood Transfusion Hx: No Neurological: NONE, dystonia, torticollis EENT: NONE Cardiovascular: NONE Respiratory: NONE Gastrointestinal: constipation Hepatic: NONE Renal: NONE Musculoskeletal: osteoarthritis Psychiatric: bipolar disease Endocrine: NONE Blood Disorders: NONE Cancer(s): NONE M[employer]/Reproductive: NONE Surgical History Surgical History: non-contributory Family History Relations & Conditions If Any: uncle FH: bipolar disorder uncle FH: Parkinson's disease Relation not specified for: *No pertinent family history Psychosocial History Where Do You Live? Home Who Do You Live With? self Services at Home: Home Health Aide Primary Language: Serbian Smoking Status: Former Smoker ETOH Use: occasional use Illicit Drug Use: denies illicit drug use Living Will? yes Functional Ability ADLs Independent: dressing, eating, toileting, bathing. Ambulation: independent Exam & Diagnostic Data Vital Signs and I&O Vital Signs Date Time Temp Pulse Resp B/P Pulse O2 O2 Flow FiO2 Ox Delivery Rate 02/10 0803 98.2 74 15 117/80 94 Room Air 02/10 0054 98.5 71 20 118/68 94 Room Air 02/09 1809 98.2 69 20 122/72 93 Room Air 02/09 1644 98.0 77 20 112/72 97 02/09 1547 97.1 77 18 114/88 95 Room Air 02/09 1343 97.8 84 20 114/83 96 Room Air 02/09 1308 97 02/09 1242 98.7 80 16 115/78 97 Room Air Intake & Output 02/10 1600 02/10 0800 02/10 0000 Intake Total 240 750 Output Total 300 Balance 240 450 Intake, Oral 240 750 Output, Urine 300 Patient 135 lb Weight Physical Exam: PHYSICAL EXAMINATION: nl = normal NT or blank = not tested GENERAL Appearance: nl Head: nl Eyes: nl ENT: nl Neck: nl Carotids: nl Lungs: nl Heart: nl Extremities: nl Spine: Moderate kyphoscoliosis with lumbothoracic convexity to the left and cervicothoracic convexity to the right, resulting in a postural lean to the right in standing NEUROLOGIC MENTAL STATUS Level of consciousness: nl Orientation: nl Attention / Concentration: nl Memory: nl Fund of Knowledge: nl Speech / Language: nl NEUROLOGIC CRANIAL NERVES I: Olfaction: NT II: Optic nerves: nl Visual see: nl III: Pupils: nl Levator palpebrae: nl III, IV, : Ocular alignment: nl Extraocular motility: nl Pursuits/ saccades: nl V: Facial sensation: nl Masseter/Pterygoids: nl VII: Facial Motor: Very mild orbicularis oculi weakness VIII: Hearing (finger rub): nl IX, X: Uvula and palate: nl XI: SCM, Upper trap.: nl XII: Tongue: nl MOTOR / NEUROMUSCULAR Bulk: nl Tone: nl Strength: nl Rapid alternating movements: nl Fine motor movements: nl Abnormal / involuntary movements: none (no apparent oral dyskinesias) CEREBELLAR / COORDINATION: intact SENSATION: intact to light touch DTR's Symmetrically trace to absent JOHNSON'S: (-) PLANTARS: flexor GAIT: Wide-based, mildly stooped posture, mild shuffling, mild retropulsion on the pull test Last 48 Hours of Lab Results: Laboratory Tests 02/10 02/09 02/09 0638 2130 1930 Chemistry Sodium (137 - 145 mmol/L) 143 Potassium (3.5 - 5.1 mmol/L) 4.7 Chloride (98 - 107 mmol/L) 107 Carbon Dioxide (22 - 30 mmol/L) 27 Anion Gap (5 - 16) 9 BUN (7 - 17 mg/dL) 14 Creatinine (0.5 - 1.0 mg/dL) 0.9 Estimated GFR (>60 ml/min) > 60 BUN/Creatinine Ratio (7 - 25 %) 15.6 Troponin I (< 0.11 ng/ml) < 0.01 Triglycerides (<150 mg/dL) 209 H Cholesterol (<200 MG/DL) 227 H LDL Cholesterol, Calc (65 - 129 mg/dL) 140 H HDL Cholesterol (40 - 60 mg/dL) 46 Cholesterol/HDL Ratio (0.00 - 4.23 %) 5 H Urines Urine Color (YEL,AMB,STR) YEL Urine Clarity (CLEAR) CLEAR Urine pH (5.0 - 8.0) 7.0 Ur Specific [place] (1.001 - 1.035) 1.010 Urine Protein (NEG,<30 MG/DL) NEG Urine Ketones (NEG) NEG Urine Nitrite (NEG) NEG Urine Bilirubin (NEG) NEG Urine Urobilinogen (0.1 - 1.0 EU/dl) 0.2 Ur Leukocyte Esterase (NEG) NEG Ur Microscopic SEDIMENT EXAMINED Urine RBC (0 - 5 /HPF) 1-3 Urine WBC (0 - 2 /HPF) RARE Ur Epithelial Cells (NONE,FEW) RARE Urine Bacteria (NEG/NONE) RARE H Urine Mucus (FEW,NONE) RARE Urine Hemoglobin (NEG) TRACE-INTACT Urine Glucose (N MG/DL) NEG 02/09 1322 Chemistry Sodium (137 - 145 mmol/L) 140 Potassium (3.5 - 5.1 mmol/L) 4.6 Chloride (98 - 107 mmol/L) 104 Carbon Dioxide (22 - 30 mmol/L) 23 Anion Gap (5 - 16) 13 BUN (7 - 17 mg/dL) 13 Creatinine (0.5 - 1.0 mg/dL) 1.0 Estimated GFR (>60 ml/min) 55 L BUN/Creatinine Ratio (7 - 25 %) 13.0 Glucose (65 - 99 mg/dL) 76 Calcium (8.4 - 10.2 mg/dL) 10.5 H Total Bilirubin (0.2 - 1.3 mg/dL) 0.4 AST (14 - 36 U/L) 32 ALT (9 - 52 U/L) 46 Alkaline Phosphatase (<127 U/L) 61 Troponin I (< 0.11 ng/ml) < 0.01 Total Protein (6.3 - 8.2 g/dL) 6.8 Albumin (3.5 - 5.0 g/dL) 3.9 Globulin (1.9 - 4.2 gm/dL) 2.9 Albumin/Globulin Ratio (1.1 - 2.2 %) 1.3 Triglycerides (<150 mg/dL) 138 Cholesterol (<200 MG/DL) 226 H LDL Cholesterol, Calc (65 - 129 mg/dL) 148 H HDL Cholesterol (40 - 60 mg/dL) 51 Cholesterol/HDL Ratio (0.00 - 4.23 %) 4 Coagulation PT (9.4 - 12.5 SEC) 11.0 INR (0.90 - 1.19) 1.05 APTT (25 - 37 SEC) 29 Hematology CBC w Diff NO MAN DIFF REQ WBC (4.8 - 10.8 /CUMM) 5.4 RBC (4.20 - 5.40 /CUMM) 4.65 Hgb (12.0 - 16.0 G/DL) 14.2 Hct (37 - 47 %) 41.9 MCV (81.0 - 99.0 FL) 90.2 MCH (27.0 - 31.0 PG) 30.5 RDW (11.5 - 14.5 %) 12.7 Plt Count (130 - 400 /CUMM) 206 MPV (7.4 - 10.4 FL) 8.7 Gran % (42.2 - 75.2 %) 51.8 Lymphocytes % (20.5 - 51.1 %) 31.0 Monocytes % (1.7 - 9.3 %) 15.8 H Eosinophils % (0 - 5 %) 0.6 Basophils % (0.0 - 2.0 %) 0.8 Absolute Granulocytes (1.4 - 6.5 /CUMM) 2.8 Absolute Lymphocytes (1.2 - 3.4 /CUMM) 1.7 Absolute Monocytes (0.10 - 0.60 /CUMM) 0.9 H Absolute Eosinophils (0.0 - 0.7 /CUMM) 0 Absolute Basophils (0.0 - 0.2 /CUMM) 0 PUBS MCHC (33.0 - 37.0 G/DL) 33.8 Toxicology Valproic Acid (50 - 120 ug/mL) 63.3 [place] (0.6 - 1.2 mmol/L) < 0.2 L Imaging/Other Studies: TECHNIQUE: MRI of the brain without contrast was obtained using routine sequences. FINDINGS: There is no hydrocephalus, extra-axial surface collection, or herniation. Global cerebral volume loss and mild chronic microangiopathy. The major flow voids at the skull base are preserved. There is no acute infarct on diffusion-weighted imaging. There is no intracranial hemorrhage on the gradient recalled echo acquisition. Benign choroid plexus xanthogranulomas incidentally noted bilaterally. The midline structures are normal. The cerebellar tonsils are normally positioned. The cerebellum and brainstem are normal. The craniocervical junction is normal. Osseous marrow signal intensity is homogenous. The visualized soft tissues are unremarkable. Mild mucosal thickening within the right maxillary sinus. The remaining paranasal sinuses and the mastoid air cells are clear. IMPRESSION: - No acute intracranial findings. No acute infarcts. - Global cerebral volume loss and mild chronic microangiopathy. 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 She recently completed a course of occupational therapy there) Office follow-up with or in [phone] Consult Acknowledgment - Thank you for your consult request.
--- NOTE | 2017-02-10 14:26 | Patient Discharge Instructions ---
Discharge Instructions General Discharge Information You were seen/treated for: left sided weakness and facial droop psychiatric medication sideeffect Special Instructions: Please follow with your PCP in a week Please follow up with your psychiatristic within a week Please follow up regarding medication dose adjustment (olanzepine) Diet Continue normal diet: Yes Activity Full Activity/No Limits: Yes Activity Self Limited: Yes Acute Coronary Syndrome Inclusion Criteria At DC or during hospital stay patient has or had the following: ACS DIAGNOSIS No Discharge Core Measures Meds if any: Prescribed or Continued at Discharge Meds if any: NOT Prescribed or Continued at Discharge Congestive Heart Failure Inclusion Criteria At DC or during hospital stay patient has or had the following: CHF DIAGNOSIS No Discharge Core Measures Meds if any: Prescribed or Continued at Discharge Meds if any: NOT Prescribed or Continued at Discharge Cerebrovascular accident Inclusion Criteria At DC or during hospital stay patient has or had the following: CVA/TIA Diagnosis No Discharge Core Measures Meds if any: Prescribed or Continued at Discharge Meds if any: NOT Prescribed or Continued at Discharge Venous thromboembolism Inclusion Criteria VTE Diagnosis No VTE Type NONE VTE Confirmed by (Test) NONE Discharge Core Measures - Per Current guidelines, there needs to be overlap - treatment for the first 5 days of Warfarin therapy. - If discharged on Warfarin prior to 5 days of - overlap therapy, the patient will need to be - assessed for post discharge needs including - *Post discharge parental anticoagulation - *Warfarin and/or parental anticoagulation education - *Follow up date to check INR post discharge At least 5 days overlap therapy as Inpatient No Meds if any: Prescribed or Continued at Discharge Note: Overlap Therapy is Warfarin and Anticoagulant Meds if any: NOT Prescribed or Continued at Discharge
[2017-02-10] MEDS ORDERED: ATORVASTATIN CA40 M1 PO (14:38)
== END 2017-02-10 15:50 ==
LOC: ENRESERVDT → ENRESERVTM → ERH 12:38 → ERHI 13:58 → ENPENDDIS 14:27 → 1NO 14:27 → ERHI 14:27 → 1NO 17:14
PROVIDERS: Emergency Medicine; Internal Medicine; ADMIT Internal Medicine
DX: G24.9 Dystonia, unspecified (principal); R26.81 Unsteadiness on feet; R53.1 Weakness; K59.09 Other constipation; M19.90 Unspecified osteoarthritis, unspecified site; I99.8 Other disorder of circulatory system; F25.0 Schizoaffective disorder, bipolar type; Z66 Do not resuscitate
CPT/HCPCS: 6020; 70551; 36415; 81001; 82436; 93005; 93010; 96372; 97110-GP; 97116-GP; 97161-GP; G0378; G8978-GP; G8979-GP; J1644

== ENCOUNTER 2017-05-14 22:33 | Inpatient (IN) | payer OTHER, MEDICARE ==
[~2017-05-14] VITALS: Ht 162.6 cm; Wt 61.2 kg
[~2017-05-14 22:33] MED LIST changes: +ATORVASTATIN CA40 M1 PO; +BACTRIM 400-801 EACH PO; +CELEXA10 M1 PO; +CIPROFLOXACIN250 M1 PO; +TRIHEXYPHENIDYL2 M2 PO
--- NOTE | 2017-05-14 22:35 | NUR ---
PT BIBA FROM HOME S/P WITNESSED ROLL/SLIDE OFF COUCH TONIGHT. PT C/O LEFT UPPER ARM PAIN. HAS 24 HR AIDE AT HOME. NO HEAD STRIKE, NO LOC, NO BLOOD THINNERS. PT ARRIVES IN SLING TO LEFT ARM S/P FALL YESTERDAY. WAS SEEN AT [facility] YESTERDAY. IS A&O X3 TO BASELINE.
--- NOTE | 2017-05-14 22:36 | ED MVC/FALL/TRAUMA COMPLAINT ---
See Addendum History of Present Illness General Chief Complaint: Fall Stated Complaint: BIBA FALL Source: patient, EMS Exam Limitations: no limitations Vital Signs & Intake/Output Vital Signs & Intake/Output Vital Signs Date Time Temp Pulse Resp B/P B/P Pulse O2 O2 Flow FiO2 Mean Ox Delivery Rate 05/15 0242 97.6 80 20 123/81 95 Room Air 05/15 0041 97.9 84 20 102/58 95 Room Air 05/14 2255 Room Air 05/14 2234 97.8 94 18 122/92 96 ED Intake and Output 05/15 0000 05/14 1200 Intake Total Output Total Balance Patient 135 lb Weight Allergies Coded Allergies: NO KNOWN ALLERGIES (06/20/16) Reconcile Medications Atorvastatin Calcium 40 MG TABLET 40 MG PO 1700 heart health Citalopram Hydrobromide (Celexa) 10 MG TABLET 1 TAB PO DAILY MENTAL HEALTH ( Reported) Divalproex Sodium (Divalproex Sodium ER) 250 MG TAB.ER.24H 1 TAB PO DAILY BIPOLAR (Reported) Divalproex Sodium (Depakote) 500 MG TABLET.DR 1 TAB PO QPM BIPOLAR (Reported) Olanzapine 15 MG TABLET 1 TAB PO QPM BIPOLAR (Reported) Triage Nurses Notes Reviewed? yes Onset: Abrupt Duration: hour(s): (2), constant, continues in ED, getting worse Timing: single episode today Severity: mild, moderate Severity Numbers: 4 Injuries/Fall Location: upper extremity Method of Injury: fall Loss of Consciousness: no loss of consciousness No Modifying Factors: none LMP (ages 10-50): post menopausal : No Patient currently breastfeeds: No HPI: 66-year-old female with a past medical history of bipolar disorder presents for evaluation after a fall. Patient reports she was sitting on her couch when she accidentally slid off the couch hitting her left arm on the ground. Patient reports pain located in the left elbow and left upper arm that is worse with movement. She rates pain as a 4 out of 10. She has not taken any medicine for the pain. He does not radiate. She denies any head injury or loss of consciousness. She doesn't take blood thinners. Patient has a recent history of multiple falls. She is currently being evaluated for possible Parkinson's disease. She was seen last night at [facility] emergency department for a fall with pain in her left arm as well. She came in wearing a sling on the arm from [facility]. No other associated symptoms. (LINDEN VELAZQUEZ PA-C) Past History Medical History Any Pertinent Medical History? see below for history Neurological: NONE, dystonia torticollis EENT: NONE Cardiovascular: NONE Respiratory: NONE Gastrointestinal: constipation Hepatic: NONE Renal: NONE Musculoskeletal: osteoarthritis Psychiatric: bipolar disease Endocrine: NONE Blood Disorders: NONE Cancer(s): NONE [employer]/Reproductive: NONE History of MRSA: No History of VRE: No History of CDIFF: No Surgical History Surgical History: non-contributory Psychosocial History Who do you live with Patient/Self Services at Home Home Health Aide What is your primary language [place] Citizen Family History Family History, If Any: uncle FH: bipolar disorder uncle FH: Parkinson's disease Relation not specified for: *No pertinent family history Hx Contributory? No (LINDEN VELAZQUEZ PA-C) Review of Systems Review of Systems Constitutional: Reports: no symptoms. Eyes: Reports: no symptoms. Ears, Nose, Throat, Mouth: Reports: no symptoms. Respiratory: Reports: no symptoms. Cardiovascular: Reports: no symptoms. Gastrointestinal/Abdominal: Reports: no symptoms. Genitourinary: Reports: no symptoms. Musculoskeletal: Reports: see HPI, joint pain, joint swelling, muscle pain. Skin: Reports: no symptoms. Neurological/Psychological: Reports: no symptoms. All Other Systems: Reviewed and Negative (LINDEN VELAZQUEZ PA-C) Physical Exam Physical Exam General Appearance: well developed/nourished, no apparent distress, alert, awake Extremities: evidence of injury, limited range of motion, pain with movement, tenderness, there is pain and swelling at the left elbow. rom of the left elbow is reduced due to pain Comments: General: Hemodynamically stable. Afebrile. Well-developed well-nourished person in no acute distress. Head: Atraumatic, normocephalic Eyes: EOMI bilaterally, PERRLA, conjunctiva are not injected, no discharge, no nystagmus, fundus grossly normal bilaterally Nose: Atraumatic, no rhinorrhea, mucosa is not erythematous, no epistaxis. Sinuses are non-tender Ears: TM pearly galarza color bilaterally, external canal is clear, no discharge, hearing is normal Mouth: Appropriate dentition, no gingival bleeding, moist mucus membranes, no oral lesions, tonsils not erythematous or enlarged and free of exudate. Uvula rises midline. Neck: Supple, full active ROM, no lymphadenopathy, no midline tenderness to palpation, no thyromegaly, no tracheal deviation. Back: Non-tender, full active ROM, no scoliosis, no CVA tenderness Cardiovascular: regular rate and rhythm, no murmurs, rubs, or gallops. No JVD Respiratory: Chest is nontender. Regular respiratory rate and effort. No accessory muscle use. Lungs clear to auscultation bilaterally. Abdomen: Soft, non-tender, non-distended, no organomegaly. No rebound tenderness or guarding. Normoactive bowel sounds. Neuro: No confusion. Motor and sensory function is intact. Appropriate gait. Cerebellar function intact. Skin: Warm and dry. Appropriate turgor. No lesions or bruising. No appreciable rash on exposed skin. Core Measures ACS in differential dx? No Severe Sepsis Present: No Septic Shock Present: No (MARCUS TUCKER,LINDEN) Progress Differential Diagnosis: C/T/L spine injury, ext injury, ICH, spinal cord injury, FRACTURE, CONTUSION Plan of Care: Orders Procedure Date/time Status Add-on Test (ER Only) 05/15 211 Active CASE MANAGEMENT CONSULT 05/15 211 Active PT Evaluate & Treat 05/15 205 Active DEPAKOTE LEVEL 05/15 35 Complete URINALYSIS 05/15 29 Active COMPREHENSIVE METABOLIC PANEL 05/15 29 Complete CBC WITHOUT DIFFERENTIAL 05/15 29 Complete Laboratory Tests 05/15/17 0035: Anion Gap 8, Estimated GFR > 60, BUN/Creatinine Ratio 24.3, Glucose 105 H, Calcium 9.8, Total Bilirubin 0.5, AST 21, ALT 28, Alkaline Phosphatase 65, Total Protein 5.9 L, Albumin 3.5, Globulin 2.4, Albumin/Globulin Ratio 1.5, CBC w Diff NO MAN DIFF REQ, RBC 4.57, MCV 90.2, MCH 30.6, RDW 12.7, MPV 8.7, Gran % 55.4, Lymphocytes % 27.8, Monocytes % 15.7 H, Eosinophils % 0.8, Basophils % 0.3, Absolute Granulocytes 3.9, Absolute Lymphocytes 2.0, Absolute Monocytes 1.1 H, Absolute Eosinophils 0.1, Absolute Basophils 0, PUBS MCHC 34.0, Valproic Acid 80.0 Patient seen and evaluated. She has pain with palpation of her left elbow and left humerus. She'll have an x-ray of the left elbow and left humerus to rule out fracture. Patient declines any pain medicine at this time. X-ray of the left elbow and humerus is negative for fracture. Spoke with patient's daughter at phone number [phone]. She feels that patient is a fall risk and she will not be safe at home. Spoke with case management. Patient will be In the emergency department overnight to see physical therapy in the morning. Patient also will have basic blood work and chest x-ray. Will follow-up on physical therapy recommendations. 1:50 AM patient signed out to Dr. Jacobo pending PT eval (MARCUS TUCKER,LINDEN) Hand-Off Endorsed To: KUNAL LUONG MD Endorsed Time: 148 Pending: consult (pt, case management ) Comments: PATIENT: YRN CHINO PRESENT AGE: 66 PATIENT ACCOUNT NO: [id number] : 48 LOCATION: [facility] ORDERING PHYSICIAN: LINDEN VELAZQUEZ PA-C SERVICE DATE: 05/15/17 EXAM TYPE: RAD - XRY-PORTABLE CHEST XRAY EXAMINATION: XR PORTABLE CHEST CLINICAL INFORMATION: Frequent falls. Altered mental status. COMPARISON: 04/03/2012 TECHNIQUE: AP portable upright view of the chest FINDINGS: Low lung volumes. No consolidation, pneumothorax, or pleural effusion. Cardiac and mediastinal contours are normal. Pulmonary vasculature is unremarkable. Osseous structures are unremarkable. 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 <Electronically signed in Other Vendor System> SIGNED BY: ERIC KNOTT MD 05/15/17107 PATIENT: YRN CHINO PRESENT AGE: 66 PATIENT ACCOUNT NO: [id number] : 48 LOCATION: [facility] ORDERING PHYSICIAN: LINDEN VELAZQUEZ PA-C SERVICE DATE: 05/14/17 EXAM TYPE: RAD - XRY-ELBOW 3 OR MORE VIEWS, L; XRY-HUMERUS, LEFT EXAMINATION: XR HUMERUS, LEFT XR ELBOW, LEFT CLINICAL INFORMATION: Left upper arm pain and elbow pain after fall. COMPARISON: 04/03/2012 TECHNIQUE: AP and lateral views of the left humerus and AP, lateral, and oblique views of the left elbow. FINDINGS: Left humerus: No fracture or malalignment. Bone mineralization is normal. Glenohumeral and acromioclavicular joints are unremarkable. Soft tissues are normal in appearance. Imaged portion of the left hemithorax is unremarkable. Left elbow: No fracture or malalignment. Bone mineralization is normal. No joint effusion is identified. Soft tissues are unremarkable. Joint spaces well-preserved. IMPRESSION: No acute fracture or malalignment in the left humerus and elbow. (LINDEN VELAZQUEZ PA-C) Hand-Off Endorsed To: LUZ MASTERS DO Endorsed Time: 0700 Pending: labs, other (case mgmt) (KUNAL LUONG MD) Departure Departure Disposition: STILL A PATIENT Condition: Stable Clinical Impression Primary Impression: Left elbow pain Secondary Impressions: Falls frequently Referrals: JAMES KELLER MD (PCP/Family) Additional Instructions: Make a follow-up appointment with your primary care doctor as soon as possible. Departure Forms: Customer Survey General Discharge Information (LINDEN VELAZQUEZ PA-C) PA/TANK TRUCK MECHANIC Co-Sign Statement Statement: ED Attending supervision documentation- x I saw and evaluated the patient. I have also reviewed all the pertinent lab results and diagnostic results. I agree with the findings and the plan of care as documented in the PA's/TANK TRUCK MECHANIC's documentation. [] I have reviewed the ED Record and agree with the PA's/TANK TRUCK MECHANIC's documentation. [] Additions or exceptions (if any) to the PAs/TANK TRUCK MECHANIC's note and plan are summarized below: [] (KUNAL LUONG MD)
--- NOTE | 2017-05-14 22:50 | NUR ---
PT TO ROOM 5. ARM IN SLING
--- NOTE | 2017-05-14 22:53 | NUR ---
PT COMPLAINING OF PAIN 7 OUT OF 10 IN LEFT SHOULDER WHEN INTERVIEWED. RESTING QUIETLY ON STRETCHER. PT INFORMED OF PLAN TO XRAY SHOULDER. PT ASKING IF SHE CAN BRUSH HER TEETH. PT UNABLE TO VERBALIzE PLAN TO GET HOME IF DISCHARGED THIS EVENING
--- NOTE | 2017-05-14 22:57 | NUR ---
PT TAKEN TO XRAY
--- NOTE | 2017-05-14 23:34 | RADIOLOGY REPORT ---
EXAMINATION: XR HUMERUS, LEFT XR ELBOW, LEFT CLINICAL INFORMATION: Left upper arm pain and elbow pain after fall. COMPARISON: 04/03/2012 TECHNIQUE: AP and lateral views of the left humerus and AP, lateral, and oblique views of the left elbow. FINDINGS: Left humerus: No fracture or malalignment. Bone mineralization is normal. Glenohumeral and acromioclavicular joints are unremarkable. Soft tissues are normal in appearance. Imaged portion of the left hemithorax is unremarkable. Left elbow: No fracture or malalignment. Bone mineralization is normal. No joint effusion is identified. Soft tissues are unremarkable. Joint spaces well-preserved. IMPRESSION: No acute fracture or malalignment in the left humerus and elbow.
--- NOTE | 2017-05-15 00:44 | NUR ---
TO BE HELD FOR PT EVAL IN AM LABS DRAWN AND SENT
[2017-05-15 00:45] LABS: ABSOLUTE BASOPHIL COUNT 0 /CUMM (0.0-0.2); ABSOLUTE EOSINOPHIL COUNT 0.1 /CUMM (0.0-0.7); ABSOLUTE GRANULOCYTE CT 3.9 /CUMM (1.4-6.5); ABSOLUTE MONOCYTE COUNT 1.1 /CUMM (0.10-0.60); BASOPHIL % 0.3 % (0.0-2.0); EOSINOPHIL % 0.8 % (0-5); GRANULOCYTE % 55.4 % (42.2-75.2); HEMATOCRIT 41.3 % (37-47); MEAN CORPUSCULAR HGB 30.6 PG (27.0-31.0); MEAN CORPUSCULAR VOLUME 90.2 FL (81.0-99.0); MEAN PLATELET VOLUME 8.7 FL (7.4-10.4); PLATELET COUNT 159 /CUMM (130-400); RBC DISTRIBUTION WIDTH 12.7 % (11.5-14.5); RED BLOOD CELL CT 4.57 /CUMM (4.20-5.40); WHITE BLOOD CELL COUNT 7.1 /CUMM (4.8-10.8)
--- NOTE | 2017-05-15 01:08 | RADIOLOGY REPORT ---
EXAMINATION: XR PORTABLE CHEST CLINICAL INFORMATION: Frequent falls. Altered mental status. COMPARISON: 04/03/2012 TECHNIQUE: AP portable upright view of the chest FINDINGS: Low lung volumes. No consolidation, pneumothorax, or pleural effusion. Cardiac and mediastinal contours are normal. Pulmonary vasculature is unremarkable. Osseous structures are unremarkable. IMPRESSION: No acute cardiopulmonary findings
--- NOTE | 2017-05-15 02:45 | NUR ---
PT UP TO COMMODE WITH ASSIST OF 2,UNABLE TO SUPPORT HER OWN WEIGHT
--- NOTE | 2017-05-15 06:39 | NUR ---
UP TO COMMODE WITH ASSIST OF 2 UNSTABLE ON FEET VOIDED SPEC SENT
--- NOTE | 2017-05-15 06:55 | NUR ---
ASSUMED CARE AT THIS ITME, PT NOTED TO BE SLEEPING AT THIS TIME WITH REGULAR RESP RATE NOTED, PER NIGHT STAFF PT IS TO HAVE PT AND CASE MANAGEMENT CONSULT THIS AM. PT NEEDS ASSIST OF 2 TO GET UP TO BEDSIDE COMMODE.
--- NOTE | 2017-05-15 07:38 | NUR ---
PT AT BEDSIDE TO EVALUATE PT,
--- NOTE | 2017-05-15 09:23 | NUR ---
PT RESTING ON STRETCHER , OFFERS NO COMPLAINTS AT THIS TIME. CALL WU WITHIN REACH.
--- NOTE | 2017-05-15 10:42 | NUR ---
BED ASSIGNMENT [id number]
--- NOTE | 2017-05-15 10:49 | NUR ---
PT RESTING ON STRETCHER, OFFERS NO COMPLAINTS AT THIS TIME. AWARE THAT SHE IS TO BE ADMITTED TO THE HOSPITAL.
--- NOTE | 2017-05-15 11:12 | NUR ---
PT PROVIDED WITH FOOD TRAY AT THIS TIME. PT AWARE THAT THIS NURSE WILL HAVE TO PLACE IV AFTER SHE IS FINISHED EATING
--- NOTE | 2017-05-15 11:44 | NUR ---
PT ASSISTED UP TO COMMODE .
--- NOTE | 2017-05-15 11:59 | NUR ---
PT TRANSPORTED TO FLOOR
[2017-05-15 12:14] VITALS: BP 128/62
--- NOTE | 2017-05-15 12:50 | History & Physical ---
See Addendum General Information and HPI MD Statement: I have seen and personally examined YRN CHINO and documented this H&P. The patient is a 66 year old F who presented with a patient stated chief complaint of [fall]. Source of Information: patient Exam Limitations: no limitations History of Present Illness: The patient is a 66-year-old female presented with chief complaints of fall followed by pain in the left elbow and upper arm. Most of the history was taken from the 24-hour day care teacher. 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 She felt a little bit improvement. On last Thursday she fell down while she was walking with the walker. [facility] was [facility], but all the workup was normal, imaging did not showed any signs of fracture. So she was sent home with pain medication. Yesterday night she fell down from the couch, it was unwitnessed fall. They called EMS/911, who bring her to the hospital. She told that she has severe pain in left arm, 10/10, increased at the movement. She denies any headache, dizziness, blurry vision, chest pain, shortness of breath. Past medical history Osteopenia (2016) Dystonia, torticollis Schizoaffective disoder Osteoarthritis Bipolar disorder Constipation Power of tax associate attorney -Daughter, Yoselyn Austin/ Nurse - [phone] Rosario Cox - Psychiatrist Allergies/Medications Allergies: Coded Allergies: NO KNOWN ALLERGIES (06/20/16) Home Med list Atorvastatin Calcium 40 MG TABLET 40 MG PO 1700 heart health Citalopram Hydrobromide (Celexa) 10 MG TABLET 1 TAB PO DAILY MENTAL HEALTH ( Reported) Divalproex Sodium (Divalproex Sodium ER) 250 MG TAB.ER.24H 1 TAB PO DAILY BIPOLAR (Reported) Divalproex Sodium (Depakote) 500 MG TABLET.DR 1 TAB PO QPM BIPOLAR (Reported) Olanzapine 15 MG TABLET 1 TAB PO QPM BIPOLAR (Reported) Past History Travel History Traveled to [place] past 21 day No Medical History Neurological: NONE, dystonia torticollis EENT: NONE Cardiovascular: NONE Respiratory: NONE Gastrointestinal: constipation Hepatic: NONE Renal: NONE Musculoskeletal: osteoarthritis Psychiatric: bipolar disease Endocrine: NONE Blood Disorders: NONE Cancer(s): NONE STORES [employer]/Reproductive: NONE History of MRSA: No History of VRE: No History of CDIFF: No Isolation History: Standard Surgical History Surgical History: non-contributory Past Family/Social History Family History Relations & Conditions if any uncle FH: bipolar disorder uncle FH: Parkinson's disease Relation not specified for: *No pertinent family history Psychosocial History Who Do You Live With? self Services at Home: Home Health Aide Primary Language: Romansh ETOH Use: occasional use Illicit Drug Use: denies illicit drug use Living Will? yes Functional Ability ADLs Independent: dressing, eating, toileting, bathing. Ambulation: independent Review of Systems Review of Systems Constitutional: Denies: fever, malaise, weakness. Cardiovascular: Denies: chest pain, edema, orthopena. Respiratory: Denies: cough, hemoptysis, orthopnea. GI: Denies: bloating, diarrhea. Genitourinary: Denies: no symptoms. Skin: Reports: change in skin color. Neurological/Psychological: Denies: no symptoms. Hematologic/Endocrine: Denies: no symptoms. Exam & Diagnostic Data Last 24 Hrs of Vital Signs/I&O Vital Signs Date Time Temp Pulse Resp B/P B/P Pulse O2 O2 Flow FiO2 Mean Ox Delivery Rate 05/15 1214 98.3 89 20 128/62 95 05/15 1022 98.2 80 18 122/76 96 Room Air 05/15 0848 98.1 84 16 132/78 95 Room Air 05/15 0640 97.9 86 18 137/85 96 Room Air 05/15 0242 97.6 80 20 123/81 95 Room Air 05/15 0041 97.9 84 20 102/58 95 Room Air 05/14 2255 Room Air 05/14 2234 97.8 94 18 122/92 96 Intake & Output 05/15 1600 05/15 0800 05/15 0000 Intake Total 240 Output Total Balance 240 Intake, Oral 240 Patient 61.235 kg 61.235 kg Weight Physical Exam General Appearance Alert, Oriented X3, Cooperative, No Acute Distress Skin Bluish discoloration of left arm, medial side involving whole of the skin HEENT Atraumatic, PERRLA, EOMI Neck Supple, No JVD Cardiovascular Normal S1, Normal S2 Lungs Clear to Auscultation Abdomen Soft, No Tenderness Extremities No Clubbing, No Cyanosis, No Edema Vascular Normal Pulses Assessment/Plan Assessment: The patient is a 66-year-old female presented with chief complaints of fall followed by pain in the left elbow and upper arm. Vital signs at the time of admission -temperature 97.8, pulse 94, respiratory rate 18, blood pressure 122/92, SPO2 96% on room air Pertinent labs- Valproic acid 80 CXR -No acute cardiopulmonary findings Humerouse X ray -No acute fracture or malalignment in the left humerus and elbow. DEXA scan (2016): 1. Osteopenia based on the lowest T-score value of -1.5 in the femoral neck applying World Health Organization criteria. 2. 10-YEAR FRACTURE RISK PREDICTION, FRAX: Major osteoporotic fracture (clinical spine, forearm, hip or shoulder) 9.6%. Hip fracture 1.2%. Assessment - Patient is having ataxia since long time and using walker. She had mechanical fall 7-10 days ago. On imaging, there is no any signs of fracture. We will treat her conservatively and if needed , we sent to rehabilitation. Plan - Superficial bruise/hematoma on left arm, secondary to mechanical fall rule out fracture by imaging * We will admit the patient to general medical floor * Pain medication according to the pain scale * Calcium and vitamin D supplementation * Physical therapy * We will continue pain medication according to the pain score * Discuss with rn case management regarding rehabilitation * Vital signs every shift * Regular diet * CODE STATUS -DNR/DNI As Ranked By This Provider Problem List: 1. Falls frequently 2. Left elbow pain 3. Bipolar disorder 4. Schizoaffective disorder, bipolar type Core Measures/Miscellaneous Acute Coronary Syndrome ACS Diagnosis: No Cerebrovascular Accident CVA/TIA Diagnosis: No Congestive Heart Failure CHF Diagnosis: No VTE (View Protocol) VTE Risk Factors: Age > 40 No [facility] VTE prophylaxis d/t: No contraindications No VTE Pharm Prophylaxis d/t: No contraindications VTE Diagnosis: No VTE Type: NONE VTE Confirmed by (Test): NONE Sepsis (View Protocol) Severe Sepsis Present: No Septic Shock Septic Shock Present: No Miscellaneous Documentation Attending Case Discussed With: Ray Craft MD Primary Care Physician: JAMES KELLER MD Patient sees these Specialists Colten Raemann )Meryl Level of Patient Care: General Medicine
[2017-05-15 22:49] VITALS: BP 120/80
[2017-05-16 07:22] VITALS: BP 120/72
--- NOTE | 2017-05-16 10:24 | PN- Housestaff ---
ELANA GARCIA,[facility] 05/16/17 1024: Subjective Follow-up For: Fall Subjective: I have seen and examined the patient. The patient was sitting comfortably in the chair. Her only complaint was pain She denied any fever or chest pain or shortness of breath. There were no overnight acute events. Review of Systems Constitutional: Denies: see HPI. Objective Last 24 Hrs of Vital Signs/I&O Vital Signs Date Time Temp Pulse Resp B/P B/P Pulse O2 O2 Flow FiO2 Mean Ox Delivery Rate 05/16 1527 98.1 76 20 122/70 97 Room Air 05/16 07 97.7 69 20 120/72 95 Room Air 05/15 2249 98.2 75 20 120/80 94 Room Air Intake & Output 05/16 1600 05/16 0800 05/16 0000 Intake Total 840 50 480 Output Total 1450 400 200 Balance -610 -350 280 Intake, IV 0 Intake, Oral 840 50 480 Number 1 Bowel Movements Output, Urine 1450 400 200 Physical Exam General Appearance: Alert, Oriented X3, Cooperative, No Acute Distress Cardiovascular: Normal S1, Normal S2 Lungs: Clear to Auscultation, Normal Air Movement Abdomen: Soft, No Tenderness Neurological: Normal Speech Extremities: bluish discoloration of left arm, medial side involving whole of the skin Current Medications: Current Medications Sig/Claudio Start time Last Medication Dose Route Stop Time Status Admin Acetaminophen 650 MG .STK-MED ONE 05/16 1144 DC PO 05/16 1145 Acetaminophen 650 MG .STK-MED ONE 05/16 0556 DC PO 05/16 0557 Acetaminophen 650 MG Q4-6 PRN PRN 05/15 1745 AC 05/16 PO 1144 Atorvastatin Calcium 40 MG 1700 05/15 1700 AC 05/16 PO 1633 Calcium/Vitamin D 500 MG BID 05/15 2200 AC 05/16 PO 0901 Citalopram 10 MG DAILY 05/15 1330 AC 05/16 Hydrobromide PO 0901 Divalproex Sodium 500 MG QPM 05/15 2200 AC 05/15 PO 2104 Divalproex Sodium 250 MG DAILY 05/15 1330 AC 05/16 PO 0901 Olanzapine 15 MG QPM 05/15 2200 AC 05/15 PO 2104 Assessment/Plan Assessment: Assessment - Patient is having ataxia since long time and using walker. She had mechanical fall 7-10 days ago. On imaging, there is no any signs of fracture. We will treat her conservatively and if needed , we sent to rehabilitation. Plan - Superficial bruise/hematoma on left arm, secondary to mechanical fall rule out fracture by imaging * Pain medication according to the pain scale * Calcium and vitamin D supplementation * Physical therapy * We will continue pain medication according to the pain score * Discuss with social work case manager regarding rehabilitation * Vital signs every shift Continue home meds -Continue Zyprexa 15 mg daily -Depakote 500 mg daily -Citalopram 10 mg daily Regular diet CODE STATUS -DNR/DNI Problem List: 1. Falls frequently Pain Ratin Pain Location: left arm Pain Goal: Pain 4 or less Pain Plan: tylenol 650 Tomorrow's Labs & Rationales: none ROGERS ADORNO MD 05/16/17 1223: Attending MD Review Statement Attending Statement Attending MD Statement: examined this patient, discuss w/resident/PA/SURGICAL ENDOSCOPIST, agreed w/resident/PA/SURGICAL ENDOSCOPIST, reviewed EMR data (avail) Attending Assessment/Plan: 66F PMH bipolar disorder, medication-induced Parkinsonism, torticollis, HLD admitted for recurrent falls, generalized weakness, ataxia, and failure of outpatient physical therapy. Patient has no acute fractures, traumatic injuries , or new neurological symptoms. She remains weak and requires assistance with ambulation. She has no complaints. Vitals stable, labs reviewed. 1. Recurrent falls 2. Parkinsonism, medication induced 3. Bipolar disorder Plan - Continue on general medicine - Follow up TSH, Vitamin D, B12 - Continue home medications - Continue to work with PT - Psychiatry consult on Thursday for medication re-evaluation - DVT PPx
[2017-05-16 15:27] VITALS: BP 122/70
[2017-05-16 22:10] VITALS: BP 120/70
[2017-05-17 06:28] VITALS: BP 120/66
--- NOTE | 2017-05-17 09:57 | PN- Housestaff ---
See Addendum Subjective Follow-up For: Superficial bruise/hematoma of left arm Subjective: I have seen and examined the patient. The patient was sitting in the bed and having breakfast. The patient said that she is in a lot of pain over her left arm. She has not had her morning pain medication yet. Patient rated her pain 8 out of 10 mostly concentrated over the brusie aggrevated by movement. She is keeping it fixed close to axilla the and not moving it. She denies any shortness of breath fever chills chest pain or palpitations. There are no overnight acute events. Review of Systems Constitutional: Reports: see HPI. Objective Last 24 Hrs of Vital Signs/I&O Vital Signs Date Time Temp Pulse Resp B/P B/P Pulse O2 O2 Flow FiO2 Mean Ox Delivery Rate 05/17 0628 97.8 82 20 120/66 98 Room Air 05/16 2210 97.8 78 20 120/70 95 05/16 1527 98.1 76 20 122/70 97 Room Air Intake & Output 05/17 1600 05/17 0800 05/17 0000 Intake Total 120 290 Output Total 200 400 Balance -80 -110 Intake, IV 10 Intake, Oral 120 280 Output, Urine 200 400 Physical Exam General Appearance: Alert, Oriented X3, Cooperative, No Acute Distress Skin: bluish discoloration of left arm, medial side involving whole of the skin Neck: Supple Cardiovascular: Normal S1, Normal S2, No Murmurs Lungs: Clear to Auscultation, Normal Air Movement Abdomen: No Tenderness Neurological: Normal Speech Extremities: linited rom left arm Current Medications: Current Medications Sig/Claudio Start time Last Medication Dose Route Stop Time Status Admin Acetaminophen 650 MG .STK-MED ONE 05/16 1144 DC PO 05/16 1145 Acetaminophen 650 MG Q4-6 PRN PRN 05/15 1745 AC 05/16 PO 1144 Atorvastatin Calcium 40 MG 1700 05/15 1700 AC 05/16 PO 1633 Calcium/Vitamin D 500 MG BID 05/15 2200 AC 05/17 PO 0730 Citalopram 10 MG DAILY 05/15 1330 AC 05/17 Hydrobromide PO 0730 Divalproex Sodium 500 MG QPM 05/15 2200 AC 05/16 PO 2103 Divalproex Sodium 250 MG DAILY 05/15 1330 AC 07/23 PO 0730 Olanzapine 15 MG QPM 05/15 2200 AC 05/16 PO 2103 Assessment/Plan Assessment: Assessment - 66F PMH bipolar disorder, medication-induced Parkinsonism, torticollis, HLD admitted for recurrent falls, generalized weakness, ataxia, and failure of outpatient physical therapy. Patient is having ataxia since long time and using walker. She had mechanical fall 7-10 days ago. On imaging, there is no any signs of fracture. We will treat her conservatively and if needed , we sent to rehabilitation. Plan - Superficial bruise/hematoma on left arm, secondary to mechanical fall rule out fracture by imaging * Pain medication according to the pain scale Tylenol 650 MG every 4-6 when necessary for mild pain, Ultram 50 MG for moderate to severe pain * Calcium and vitamin D supplementation * Continue PT * Follow up TSH, Vitamin D, B12 * Psychiatry consult on Thursday for medication re-evaluation * Discuss with case planner regarding rehabilitation Bipolar disorder Continue home med * Citalopram 10 mg daily * DepakoteER 250 MG daily * Depakote 500 mg QPM * Continue Zyprexa 15 mg QPM Hyperlipidemia * Continue atorvastatin 40 MG daily CODE STATUS -DNR/DNI Problem List: 1. Bipolar disorder 2. Falls frequently Pain Ratin Pain Location: LEFT ARM Pain Goal: Pain 4 or less Pain Plan: Tylenol and Ultram Tomorrow's Labs & Rationales: TSH B12 VIT D
--- NOTE | 2017-05-17 12:05 | Discharge Summary ---
Visit Information Visit Dates Admission Date: 05/15/17 Discharge Date: 05/19/2017 Hospital Course Course Attending Physician: TALISHA GARCIA,[facility] Primary Care Physician: KRISHNA GARCIA,[facility] Course: The patient is a 66-year-old female with PMH of osteopenia, dystionia, schizoaffective disorder, OA, Bipoalr do, and constipation who presented with chief complaints of fall followed by pain in the left elbow and upper arm. The pt fell down from the couch the night before admission. It was unwitnessed fall. They called EMS/911, who bring her to the hospital. Vital signs at the time of admission -temperature 97.8, pulse 94, respiratory rate 18, blood pressure 122/92, SPO2 96% on room air Pertinent labs- Valproic acid 80 CXR -No acute cardiopulmonary findings Humerous X ray -No acute fracture or malalignment in the left humerus and elbow. DEXA scan (2016): 1. Osteopenia based on the lowest T-score value of -1.5 in the femoral neck applying World Health Organization criteria. 2. 10-YEAR FRACTURE RISK PREDICTION, FRAX: Major osteoporotic fracture (clinical spine, forearm, hip or shoulder) 9.6%. Hip fracture 1.2%. Elbow and Humerus XRAY IMPRESSION: No acute fracture or malalignment in the left humerus and elbow. CXR IMPRESSION: No acute cardiopulmonary findings Pt eval for the following problems in Gen Med floor: Hematoma on left arm2/2 mechanical fall: SHe was given physical therapy and started on pain medication. She will require rehabilitiation per PT evaluation. * Con't Vit D and Ca supplementation * Con't pain reg * If symptoms worsen follow up with PCP * Tramadol and Tylenol for pain control Psychiatry Medications: Pt was seen by psych team for evaluation of her outpatient medication. [facility] and she has current hx of schizoaffective. bipolar type disorder. She has had 4x inpatient admissions. * Change Olanzapine to 12.5 mg daily at bed time (used to be 15mg) * Depakote DR 250 mg every morning and Depakote DR 500mg daily at bed time * Depakote level on 05/20 am * Follow up with care post discharge * Follow up with psychiatry at rehab placement Allergies: Coded Allergies: NO KNOWN ALLERGIES (06/20/16) Disposition Summary Disposition Principal Diagnosis: FALL WITH CONTUSION Additional Diagnosis: BIPOLAR Discharge Disposition: SNF Discharge Instructions General Discharge Information Code Status: Do Not Resucitate/Intubat Patient's Diet: TOLERATED Patient's Activity: TOLERATED Follow-Up Instructions/Appts: SEE ABOVE Medications at Discharge Discharge Medications: Stop taking the following medications: Olanzapine (Olanzapine) 15 MG TABLET ORAL Every night Divalproex Sodium (Divalproex Sodium ER) 250 MG TAB.ER.24H ORAL DAILY Qty = 60 Continue taking these medications: Divalproex Sodium (Depakote) 500 MG TABLET.DR 1 Tablet ORAL Every night Qty = 30 Comments: Last Taken: 02/09/17 Time: 10:00 PM Citalopram Hydrobromide (Celexa) 10 MG TABLET 1 Tablet ORAL DAILY Qty = 30 Comments: Last Taken: 02/10/17 Time: 11:00 AM Atorvastatin Calcium (Atorvastatin Calcium) 40 MG TABLET 40 Milligram ORAL 5 PM Qty = 30 Comments: NOT GIVEN IN HOSPITAL Start taking the following new medications: Acetaminophen (Tylenol) 325 MG TABLET 1 Tablet ORAL Every 4 hours as needed for PAIN Qty = 30 No Refills Olanzapine (Olanzapine) 10 MG TABLET 1 Tablet ORAL AT BEDTIME Qty = 30 No Refills Comments: Please take 12.5mg total at bed time daily. (1x10mg capsule + 1x2.5 capsule = 12.5mg). Tramadol HCl (Tramadol HCl) 50 MG TABLET 1 Tablet ORAL TWICE DAILY as needed for PAIN SCALE 7-10 (SEVERE) Qty = 15 No Refills Divalproex Sodium (Depakote) 125 MG TABLET.DR 2 Tablet ORAL AM Qty = 30 No Refills Olanzapine (Zyprexa) 2.5 MG TABLET 1 Tablet ORAL AT BEDTIME Qty = 30 No Refills Comments: Please take 12.5mg total at bed time daily. (1x10mg capsule + 1x2.5 capsule = 12.5mg). Copies To: KRISHNA GARCIA,JAMES
[2017-05-17 14:30] VITALS: BP 130/70
[2017-05-17 21:45] VITALS: BP 124/64
--- NOTE | 2017-05-18 05:43 | PN- Housestaff ---
Subjective Follow-up For: Left shoulder pain Subjective: I saw the patient this morning. Was arousable,but kept going back to sleep. Denied any acute events overnight. Pt continues to have left shoulder pain but states the pain medicine is helping. Pt denies n/v/c/d/, fever/chills, abdominal pain, chest pain, SOB, dysuria/ hematuria. Review of Systems Constitutional: Denies: see HPI. Cardiovascular: Denies: no symptoms. Respiratory: Denies: no symptoms, see HPI. Gastrointestinal: Denies: no symptoms, see HPI. Genitourinary: Denies: no symptoms, see HPI. Musculoskeletal: Denies: no symptoms. Objective Last 24 Hrs of Vital Signs/I&O Vital Signs Date Time Temp Pulse Resp B/P B/P Pulse O2 O2 Flow FiO2 Mean Ox Delivery Rate 05/18 1039 Room Air 05/18 1036 Room Air 05/18 0710 98.0 78 16 120/68 94 Room Air 05/17 2145 97.8 84 20 124/64 94 Room Air 05/17 1430 98.2 88 20 130/70 94 Intake & Output 05/18 1600 05/18 0800 05/18 0000 Intake Total 240 160 Output Total 600 Balance 240 -440 Intake, Oral 240 160 Output, Urine 600 Physical Exam General Appearance: No Acute Distress, pt was sleeping comfortably in bed HEENT: Atraumatic, Mucous Membr. moist/pink Cardiovascular: Regular Rate, Normal S1, Normal S2 Lungs: Clear to Auscultation Abdomen: Normal Bowel Sounds, Soft, No Tenderness Extremities: Normal Pulses, L shoulder Assessment/Plan Assessment: 66F PMH bipolar disorder, medication-induced Parkinsonism, torticollis, HLD admitted for recurrent falls, generalized weakness, ataxia, and failure of outpatient physical therapy. Patient is having ataxia since long time and using walker. She had mechanical fall 7-10 days ago. On imaging, there is no any signs of fracture. We will treat her conservatively and if needed , we sent to rehabilitation. Plan - Superficial bruise/hematoma on left arm, secondary to mechanical fall ruled out fracture by imaging * Pain medication according to the pain scale Tylenol 650 MG every 4-6 when necessary for mild pain, Ultram 50 MG for moderate to severe pain * Calcium and vitamin D supplementation * PT consulted - recommend rehab * TSH: 1.350, Vitamin D: 33.5, B12: 554 * Pt is stable for discharge, awaiting a bed for placement to [facility] * Psych consulted for re-evaluation of medications as patient appears quite drowsy and poorly responsive to questions. Could be attributing to her falls. Bipolar disorder Continue home med * Citalopram 10 mg daily * DepakoteER 250 MG daily * Depakote 500 mg QPM * Continue Zyprexa 15 mg QPM Hyperlipidemia * Continue atorvastatin 40 MG daily CODE STATUS -DNR/DNI Diet: Regular DVT PPx: ALPs Disp: stable for discharge to [facility] pending bed availability Problem List: 1. Falls frequently 2. Left elbow pain 3. Bipolar disorder Pain Ratin Pain Location: Left shoulder Pain Goal: Pain 4 or less Pain Plan: tylenol PRN heatpad tramadol for severe pain Tomorrow's Labs & Rationales: none
[2017-05-18 07:10] VITALS: BP 120/68
--- NOTE | 2017-05-18 09:05 | Patient Discharge Instructions ---
Discharge Instructions General Discharge Information You were seen/treated for: Left shoulder pain Watch for these problems: 1. Worsening pain 2. Unsteady gait resulting in fall 3. Weakness and dizziness Special Instructions: 1. Follow up with your primary care provider in 1 week 2. For shoulder pain, take tylenol or ibuprofen as needed, rest and use a cold/ hot pack Diet Continue normal diet: Yes Activity Full Activity/No Limits: No Activity Self Limited: Yes Acute Coronary Syndrome Inclusion Criteria At DC or during hospital stay patient has or had the following: ACS DIAGNOSIS No Discharge Core Measures Meds if any: Prescribed or Continued at Discharge Meds if any: NOT Prescribed or Continued at Discharge Congestive Heart Failure Inclusion Criteria At DC or during hospital stay patient has or had the following: CHF DIAGNOSIS No Discharge Core Measures Meds if any: Prescribed or Continued at Discharge Meds if any: NOT Prescribed or Continued at Discharge Cerebrovascular accident Inclusion Criteria At DC or during hospital stay patient has or had the following: CVA/TIA Diagnosis No Discharge Core Measures Meds if any: Prescribed or Continued at Discharge Meds if any: NOT Prescribed or Continued at Discharge Venous thromboembolism Inclusion Criteria VTE Diagnosis No VTE Type NONE VTE Confirmed by (Test) NONE Discharge Core Measures - Per Current guidelines, there needs to be overlap - treatment for the first 5 days of Warfarin therapy. - If discharged on Warfarin prior to 5 days of - overlap therapy, the patient will need to be - assessed for post discharge needs including - *Post discharge parental anticoagulation - *Warfarin and/or parental anticoagulation education - *Follow up date to check INR post discharge At least 5 days overlap therapy as Inpatient No Meds if any: Prescribed or Continued at Discharge Note: Overlap Therapy is Warfarin and Anticoagulant Meds if any: NOT Prescribed or Continued at Discharge
[2017-05-18] MEDS ORDERED: TYLENOL325 M1 PO (11:15)
[2017-05-18] MEDS ORDERED: TRAMADOL HCL50 M1 PO (11:15)
--- NOTE | 2017-05-18 12:40 | PN- Att Addend ---
Attending Addendum Attending Brief Note Patient seen and examined. Plan of care discussed with the medical team and the patient. Available lab work and radiology test reports were reviewed. Pt is awake, alert, and denies any fever, chills. She is sitting in chair without any distress. Assessment: * hx of Fall * Left arm pain/bruise without fracture * bipolar disorder- stable on medications * Hyperlipidemia Plan: * continue PT * continue current pain meds; trial of heat pad to left arm * if pt is excessively drowsy, may benefit from psych eval to review her psych meds * STR when bed available. stable for DC today if bed is available. Exam: General: Patient awake alert oriented without any distress CVS: S1 plus S2 without any murmur or gallops Chest: Few scattered crepitation without any wheeze. There is no respiratory distress. Abdomen: Soft nontender, bowel sound present, no guarding or rebound HOSE TENDER: Awake alert oriented without any focal neuro deficit and follows command appropriately Extremities: No edema; no clubbing or cyanosis noted; left upper arm is swollen with hematoma, bruise, and is tender. ROM at shoulder is intact. Laboratory Tests 05/18 0747 Chemistry Vitamin B12 (239 - 931 pg/mL) 554 25-OH Vitamin D Total (30 - 100 ng/ml) 33.5 TSH (0.270 - 4.200 uIU/mL) 1.340 Vital Signs Date Time Temp Pulse Resp B/P B/P Pulse O2 O2 Flow FiO2 Mean Ox Delivery Rate 05/18 1039 Room Air 05/18 1036 Room Air 05/18 0710 98.0 78 16 120/68 94 Room Air 05/17 2145 97.8 84 20 124/64 94 Room Air 05/17 1430 98.2 88 20 130/70 94
[2017-05-18 14:49] VITALS: BP 120/80
[2017-05-18 22:51] VITALS: BP 116/60
[2017-05-19 06:30] VITALS: BP 120/60
--- NOTE | 2017-05-19 07:20 | PN- Housestaff ---
Subjective Follow-up For: L shoulder pain Fall Subjective: Pt was sitting in bed awake and alert. Pt states she continues to have shoulder pain. Rates it a 8/10 but improves to 6/10 with pain medication. Pt denies fever /chills, n/v/d/c, hematuria/dysuria, abdominal pain/chest pain. Review of Systems Constitutional: Denies: see HPI. Cardiovascular: Denies: see HPI. Respiratory: Denies: see HPI. Gastrointestinal: Denies: see HPI. Genitourinary: Denies: see HPI. Musculoskeletal: Reports: see HPI. Objective Last 24 Hrs of Vital Signs/I&O Vital Signs Date Time Temp Pulse Resp B/P B/P Pulse O2 O2 Flow FiO2 Mean Ox Delivery Rate 05/19 0630 98.3 84 20 120/60 93 Room Air 05/18 2251 98.0 83 19 116/60 94 Room Air 05/18 1449 99.0 72 14 120/80 93 05/18 1039 Room Air 05/18 1036 Room Air Intake & Output 05/19 1600 05/19 0800 05/19 0000 Intake Total 300 Output Total 750 Balance -450 Intake, Oral 300 Output, Urine 750 Physical Exam General Appearance: Alert, Oriented X3, Cooperative, No Acute Distress HEENT: Atraumatic, Mucous Membr. moist/pink Cardiovascular: Regular Rate, Normal S1, Normal S2 Lungs: Clear to Auscultation Abdomen: Normal Bowel Sounds, Soft, No Tenderness Extremities: Normal Pulses, minimal tenderness of Left arm, echhymosis unchanged from previous day, no swelling Assessment/Plan Assessment: 66F PMH bipolar disorder, medication-induced Parkinsonism, torticollis, HLD admitted for recurrent falls, generalized weakness, ataxia, and failure of outpatient physical therapy. Patient is having ataxia since long time and using walker. She had mechanical fall 7-10 days ago. On imaging, there is no any signs of fracture. We will treat her conservatively and if needed , we sent to rehabilitation. Plan - Superficial bruise/hematoma on left arm, secondary to mechanical fall ruled out fracture by imaging * Pain medication according to the pain scale Tylenol 650 MG every 4-6 when necessary for mild pain, Ultram 50 MG for moderate to severe pain * Calcium and vitamin D supplementation * PT consulted - recommend rehab * TSH: 1.350, Vitamin D: 33.5, B12: 554 * Pt is stable for discharge, awaiting a bed for placement to [facility] * Psych consulted for re-evaluation of medications as patient appears quite drowsy and poorly responsive to questions. Could be attributing to her falls. Bipolar disorder Continue home med * Psych consulted. Appreciate recommendations. * Citalopram 10 mg daily * DepakoteER 250 MG in AM * Depakote ER 500 mg QPM * Decreased Zyprexa 15 mg to 12.5mg at bedtime Hyperlipidemia * Continue atorvastatin 40 MG daily CODE STATUS -DNR/DNI Diet: Regular DVT PPx: ALPs Disp: stable for discharge to [facility] pending bed availability Problem List: 1. Bipolar disorder 2. Falls frequently 3. Left elbow pain Pain Ratin Pain Location: left arm/shoulder Pain Goal: Pain 7 or less Pain Plan: continue PO tylenol, percocet PRN Tomorrow's Labs & Rationales: none
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
--- NOTE | 2017-05-19 13:38 | PN- Att Addend ---
Attending Addendum Attending Brief Note Patient seen and examined. Plan of care discussed with the medical team and the patient. Available lab work and radiology test reports were reviewed. Pt is awake, alert, and denies any fever, chills. She is sitting in chair without any distress. She reports some improvement in left upper arm pain. She sitting in chair comfortably and does not appear to be in any distress today. Assessment: * hx of Fall * Left arm pain/bruise and hematoma without fracture * bipolar disorder- stable on medications * Hyperlipidemia Plan: * continue PT * continue current pain meds; heat pad to left arm * Discharge to or today. Bed is available at [facility] Total time spent in preparation for discharge plan, patient education, and CMR preparation was 35 minutes. Exam: General: Patient awake alert oriented without any distress CVS: S1 plus S2 without any murmur or gallops Chest: Few scattered crepitation without any wheeze. There is no respiratory distress. Abdomen: Soft nontender, bowel sound present, no guarding or rebound TUMBLER MACHINE OPERATOR: Awake alert oriented without any focal neuro deficit and follows command appropriately Extremities: No edema; no clubbing or cyanosis noted; left upper arm is swollen with hematoma, bruise, and is tender. ROM at shoulder is intact. Vital Signs Date Time Temp Pulse Resp B/P B/P Pulse O2 O2 Flow FiO2 Mean Ox Delivery Rate 05/19 0630 98.3 84 20 120/60 93 Room Air 05/19 0000 94 Room Air 05/18 2251 98.0 83 19 116/60 94 Room Air 05/18 1449 99.0 72 14 120/80 93 Intake & Output 05/19 1600 05/19 0800 05/19 0000 Intake Total 0 300 Output Total 750 Balance 0 -450 Intake, IV 0 Intake, Oral 0 300 Number 0 Bowel Movements Output, Urine 750 No new labs done today.
[2017-05-19] MEDS ORDERED: DEPAKOTE125 M1 PO (13:58)
[2017-05-19] MEDS ORDERED: ZYPREXA2.5 M1 PO (14:03)
[2017-05-19] MEDS ORDERED: OLANZAPINE10 M1 PO (14:04)
[2017-05-19] MEDS ORDERED: TYLENOL325 M1 PO (14:05)
[2017-05-19 14:09] VITALS: BP 116/72
[2017-05-19 15:21] VITALS: BP 116/72
== END 2017-05-19 16:46 | DRG 92 ==
LOC: DELPENDDIS → ERH 22:33 → ERHI 05-15 09:23 → 2NA 05-15 09:23 → ENRESERV 05-15 10:40 → ENTRNSPT 05-15 11:51 → EDTRNSPTSTS 05-15 11:57 → EDTRNSPT 05-15 11:57 → 2NA 05-15 12:06 → CMPTRNSPT 05-15 12:18 → 2NA 05-18 08:49 → ENPENDDIS 05-18 12:06 → 2NA 05-19 16:46
PROVIDERS: Physician Assistant Medical; ADMIT Internal Medicine
DX: R26.0 Ataxic gait (principal); G21.19 Other drug induced secondary parkinsonism; F25.9 Schizoaffective disorder, unspecified; E78.5 Hyperlipidemia, unspecified; S40.022A Contusion of left upper arm, initial encounter; M43.6 Torticollis; W08.XXXA Fall from other furniture, initial encounter; Y92.009 Unspecified place in unspecified non-institutional (private) residence as the place of occurrence of the external cause; Z91.81 History of falling; M85.80 Other specified disorders of bone density and structure, unspecified site; G24.9 Dystonia, unspecified
CPT/HCPCS: 2NAP; 73060-LT; 73080-LT; 81001; 97110-GO; 97116-GO; 97161-GP; 97530-GO

== ENCOUNTER 2017-05-21 11:29 | Emergency (ER) | payer OTHER, MEDICARE ==
[~2017-05-21] VITALS: Ht 162.6 cm; Wt 60.8 kg
[~2017-05-21 11:29] MED LIST changes: +DEPAKOTE125 M1 PO; +OLANZAPINE10 M1 PO; +TRAMADOL HCL50 M1 PO; +TYLENOL325 M1 PO; +ZYPREXA2.5 M1 PO
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
[2017-05-21 14:11] VITALS: BP 143/89
--- NOTE | 2017-05-21 14:56 | CT SCAN REPORT ---
EXAMINATION: CT UPPER EXTREMITY WITHOUT CONTRAST, LEFT CLINICAL INFORMATION: Left shoulder to mid forearm pain after recent fall. COMPARISON: X-rays of the left humerus April 2017. TECHNIQUE: CT scan of the left humerus obtained. The exam extends from the shoulder joint to the level of the humeral epicondyles. The entire elbow joint was not included in the [id number] with the examination. Additional sagittal and coronal reformatted images obtained at the acquisition workstation. DLP: 1548 mGy-cm FINDINGS: There is a minimally displaced fracture to the proximal humerus. The fracture extends through the greater tuberosity anterior to posterior. The fracture also extends distally and anteriorly into the metaphysis through the anterior cortex 4.1 cm distal to the apex of the humeral head. There is also a small nondisplaced or minimally displaced fracture of the distal aspect of the lesser tuberosity. No additional fractures. There is heterogeneous fluid surrounding the area of the fracture within the subacromial-subdeltoid bursa compatible with hematoma. There is mild acromioclavicular arthrosis. IMPRESSION: Nondisplaced\E\minimally displaced fracture of the proximal humerus involving the greater and lesser tuberosity with extension into the anterior proximal metaphysis of the humerus. No additional fractures. If continued concern about a possible elbow fracture recommend additional dedicated CT scan of the elbow as the present exam extends to the level of the epicondyles.
== END 2017-05-21 16:31 ==
LOC: ERH 11:29
DX: S42.252A Displaced fracture of greater tuberosity of left humerus, initial encounter for closed fracture (principal); W19.XXXD Unspecified fall, subsequent encounter; Y93.9 Activity, unspecified; Y92.9 Unspecified place or not applicable